=== PATIENT | female | born 1960 | race Caucasian/White ===

== ENCOUNTER → 2016-11-27 | Outpatient (CLI) | payer OTHER ==
[~2016-11-27] MED LIST: LEVO175T25 PO
--- NOTE | 2016-11-27 10:38 | DIAGNOSTIC IMAGING REPORT ---
RIGHT HAND MIN 3 VIEWS ROUTINE CLINICAL HISTORY: HAND PAIN Right trauma. Pain. COMPARISON: None. DISCUSSION: The bones and joint spaces appear intact. There is no evidence of fracture, dislocation or bony disease. There is no evidence for soft tissue swelling. IMPRESSION: Negative study. The above report was generated using voice recognition software. It may contain grammatical, syntax or spelling errors. Electronically signed by: Gutierrez William M.D. 11/27/2016 10:37 AM Dictated Date/Time: 11/27/2016 10:37 AM
--- NOTE | 2016-11-27 10:39 | DIAGNOSTIC IMAGING REPORT ---
RIGHT FOREARM 2 VIEWS ROUTINE CLINICAL HISTORY: ARM PAIN Right trauma. Pain. COMPARISON: None. DISCUSSION: The bones and joint spaces appear intact. There is no evidence of fracture, dislocation or bony disease. There is no evidence for soft tissue swelling. IMPRESSION: Negative study. The above report was generated using voice recognition software. It may contain grammatical, syntax or spelling errors. Electronically signed by: Gutierrez William M.D. 11/27/2016 10:38 AM Dictated Date/Time: 11/27/2016 10:37 AM
--- NOTE | 2016-11-27 10:40 | DIAGNOSTIC IMAGING REPORT ---
RIGHT WRIST MIN 3 VIEWS ROUTINE CLINICAL HISTORY: WRIST PAIN Right pain. Trauma. COMPARISON: None. DISCUSSION: The bones and joint spaces appear intact. There is no evidence of fracture, dislocation or bony disease. There is no evidence for soft tissue swelling. IMPRESSION: Negative study. The above report was generated using voice recognition software. It may contain grammatical, syntax or spelling errors. Electronically signed by: Gutierrez William M.D. 11/27/2016 10:39 AM Dictated Date/Time: 11/27/2016 10:38 AM
== END | disposition home or self-care (01) ==
LOC: C.RAD1850 10:09
PROVIDERS: ATTEND Physician Assistant Medical
DX: S49.91XA Unspecified injury of right shoulder and upper arm, initial encounter (principal); X58.XXXA Exposure to other specified factors, initial encounter

== ENCOUNTER 2021-11-01 14:13 | Inpatient (IN) ==
[2021-11-01] MEDS ORDERED: SODIUM CHLORIDE 0.9% 1000ML 2,000 ML IV ONE (14:25)
[2021-11-01] MEDS ORDERED: SODIUM CHLORIDE 0.9% 1000ML 500 ML IV ONE (14:33)
[2021-11-01] MEDS ORDERED: cefTRIAXone SODIUM 2,000 MG/70 ML BAG IV STA (14:33)
[2021-11-01] MEDS ORDERED: ACETAMINOPHEN 325 MG TAB PO STA (14:33)
--- NOTE | 2021-11-01 14:39 | Emergency Department Note ---
Impression & Plan Sepsis, Pyelonephritis ED Provider Note NAME: ROXY HAMMOND AGE: 61 SEX: F : 1960 ARRIVES VIA: Walk-In INFORMANT: Patient ED PROVIDER(S): Gabriel Kennedy DO CHIEF COMPLAINT: abdominal pain HPI: Patient is a 61-year-old female the ER for back pain associate with nausea, vomiting, and diarrhea. Pain located in the left lower back which started this past . Symptoms started this past . Patient has been having fevers 101. Patient has diffuse abdominal pain associated with this. She cannot keep anything down. History of previous appendectomy. Denies any vaginal bleeding or vaginal discharge. No other exacerbating or remitting factors. ROS: See above HPI for pertinent positives & negatives. A total of 10 systems reviewed and were otherwise negative. PAST MEDICAL HISTORY:See Below PAST SURGICAL HISTORY:See Below FAMILY HISTORY:See Below SOCIAL HISTORY:See Below HOME MEDICATIONS:See Below ALLERGIES:See Below VITALS:See Below PHYSICAL EXAMINATION: GENERAL: Sitting up in bed, alert, well appearing, well nourished, no distress, non-toxic EYE EXAM: normal conjunctiva. OROPHARYNX: no exudate, no erythema, lips, buccal mucosa, and tongue normal and mucous membranes are moist NECK: supple, no nuchal rigidity, no adenopathy, non-tender LUNGS: Clear to auscultation. Normal chest wall mechanics HEART: no murmurs, S1 normal and S2 normal ABDOMEN: abdomen soft, non-tender, normo-active bowel sounds, no masses, no rebound or guarding. BACK: Back is symmetrical on inspection and there is no deformity, no midline tenderness, no CVA tenderness. UPPER EXTREMITIES: upper extremities are grossly normal. LOWER EXTREMITIES: No pitting edema. NEURO EXAM: Normal sensorium, cranial nerves II-XII grossly intact, normal speec h, no gross weakness of arms, no gross weakness of legs. MEDICAL DECISION MAKING: Patient is a 61-year-old female who presents ER febrile and tachycardic. IV was established blood work is obtained. Labs show leukocytosis 17,000. No significant anemia. BMP along with LFTs, bilirubin, lipase, is unremarkable. UA suggest UTI. CT abdomen pelvis shows likely pyelonephritis which was reviewed by urology who believes that there is Pylo which is not mentioned on the CT read by radiologist. Pt was given 2.5 L of IV fluids. Patient was given 2 g of Rocephin. She was given IV pain medications updated bedside discussed with hospitalist admitted for further work-up of sepsis secondary to Pylo. Triage Nursing notes reviewed. Limited review of prior medical records performed Vital Signs: reviewed and remarkable for febrile and tachycardic Differential diagnosis: Differential diagnoses includes but is not limited to gastritis, peptic ulcer disease, GERD, gallbladder disease, pancreatitis, small bowel obstruction, acute coronary syndrome, pericarditis, ischemic bowel, irritable bowel disease, irritable bowel syndrome, appendicitis, diverticulitis, malignancy, hernia, urinary tract infection, torsion, [/ectopic (if female)], perforation, trauma, infectious. ER treatment provided: See below Diagnostics interpreted by me: ECG: none Cardiac Monitoring: An order was placed for continuous cardiac monitoring. The monitor shows a rate of 120 with sinus rhythm. Laboratory studies: As stated above and show below. 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 Hypothyroidism Insomnia Mood disorder Osteoporosis Tobacco use Surgical History (Updated 11/01/21 @ 17:01 by Madiha Lawrence PA-C) History of partial hysterectomy Hx of appendectomy Hx of tonsillectomy Family History (Updated 11/01/21 @ 17:02 by Madiha Lawrence PA-C) Father Cancer Heart disease Mother Uterine cancer Aunt Breast cancer Social History Smoking Status: Current every day smoker Preferred Language: Hebrew Feels Safe at Home: Yes Allergies Allergies Allergy/AdvReac Type Severity Reaction Status Date / Time penicillin G Allergy Unknown HIVES/ Unverified 11/01/21 17:29 SWELLING Home Meds Home Medications Medication Instructions Recorded Confirmed carisoprodol 350 mg tablet 350 mg PO TID PRN 11/01/21 11/01/21 hydrocodone 10 mg-acetaminophen 1 tab PO Q6 PRN 11/01/21 11/01/21 325 mg tablet ibuprofen 200 mg tablet (Advil) 400 mg PO Q6H PRN 11/01/21 11/01/21 levothyroxine 175 mcg tablet 175 mcg PO DAILY 11/01/21 11/01/21 ondansetron HCl 8 mg tablet 8 mg PO Q8 PRN 11/01/21 11/01/21 sumatriptan succinate 100 mg tablet 100 mg PO DIRECTED 11/01/21 11/01/21 zolmitriptan 5 mg tablet 5 mg PO DIRECTED 11/01/21 11/01/21 Results & Data (ED) Vital Signs Vital Signs - 24 hr 11/01/21 14:15 11/01/21 14:40 11/01/21 14:45 Temperature 39.0 C H Temperature Source Oral Pulse Rate 156 H 137 H 135 H Pulse Rate [Right Finger] Pulse Rate from SpO2 Sensor Pulse Rhythm Regular Pulse Rhythm [Right Finger] Pulse Strength Normal Pulse Strength [Right Finger] Respiratory Rate 20 23 22 Respiratory Effort / Characteristics Non-Labored Spontaneous Respiratory Depth Normal Respiratory Pattern Regular Blood Pressure 116/65 Blood Pressure [Left Arm] Blood Pressure Mean 82 Blood Pressure Mean [Left Arm] Blood Pressure Position Sitting Blood Pressure Position [Left Arm] Pulse Oximetry 96 Oxygen Delivery Method Room Air Sepsis Recent Fever Within 48 Hours Yes Sepsis New/Unexplained Change in Mental Status No Sepsis Action Taken by Nursing Physician Notified 11/01/21 15:00 11/01/21 15:05 11/01/21 15:07 Temperature 39 C H 37 C Temperature Source Oral Oral Pulse Rate 132 H 128 H Pulse Rate [Right Finger] 131 H 128 H Pulse Rate from SpO2 Sensor 131 H Pulse Rhythm Regular Pulse Rhythm [Right Finger] Regular Pulse Strength Pulse Strength [Right Finger] Normal Normal Respiratory Rate 23 18 19 Respiratory Effort / Characteristics Non-Labored Spontaneous Non-Labored Spontaneous Non-Labored Spontaneous Respiratory Depth Normal Normal Respiratory Pattern Tachypnea Regular Blood Pressure 122/81 Blood Pressure [Left Arm] 122/81 122/81 Blood Pressure Mean 94 Blood Pressure Mean [Left Arm] 94 94 Blood Pressure Position Blood Pressure Position [Left Arm] Lying Lying Pulse Oximetry 96 96 97 Oxygen Delivery Method Room Air Room Air Room Air Sepsis Recent Fever Within 48 Hours Sepsis New/Unexplained Change in Mental Status Sepsis Action Taken by Nursing 11/01/21 15:15 11/01/21 15:30 11/01/21 15:45 Temperature Temperature Source Pulse Rate 122 H 126 H 114 H Pulse Rate [Right Finger] Pulse Rate from SpO2 Sensor 130 H 126 H 114 H Pulse Rhythm Pulse Rhythm [Right Finger] Pulse Strength Pulse Strength [Right Finger] Respiratory Rate 19 20 20 Respiratory Effort / Characteristics Non-Labored Respiratory Depth Respiratory Pattern Blood Pressure Blood Pressure [Left Arm] Blood Pressure Mean Blood Pressure Mean [Left Arm] Blood Pressure Position Blood Pressure Position [Left Arm] Pulse Oximetry 92 100 97 Oxygen Delivery Method Room Air Sepsis Recent Fever Within 48 Hours Sepsis New/Unexplained Change in Mental Status Sepsis Action Taken by Nursing 11/01/21 16:00 11/01/21 16:09 11/01/21 16:12 Temperature Temperature Source Pulse Rate 110 H 107 H Pulse Rate [Right Finger] Pulse Rate from SpO2 Sensor 107 H Pulse Rhythm Pulse Rhythm [Right Finger] Regular Pulse Strength Pulse Strength [Right Finger] Respiratory Rate 19 28 H Respiratory Effort / Characteristics Non-Labored Respiratory Depth Normal Respiratory Pattern Blood Pressure 98/60 L Blood Pressure [Left Arm] Blood Pressure Mean 72 Blood Pressure Mean [Left Arm] Blood Pressure Position Blood Pressure Position [Left Arm] Pulse Oximetry 96 Oxygen Delivery Method Sepsis Recent Fever Within 48 Hours Sepsis New/Unexplained Change in Mental Status Sepsis Action Taken by Nursing 11/01/21 16:15 11/01/21 16:30 11/01/21 16:45 Temperature 38 C H Temperature Source Oral Pulse Rate 105 H 106 H 95 H Pulse Rate [Right Finger] 112 H Pulse Rate from SpO2 Sensor 106 H 106 H 95 H Pulse Rhythm Pulse Rhythm [Right Finger] Pulse Strength Pulse Strength [Right Finger] Respiratory Rate 19 25 H 25 H Respiratory Effort / Characteristics Respiratory Depth Respiratory Pattern Blood Pressure 95/60 L 103/57 L 117/57 L Blood Pressure [Left Arm] 98/60 L Blood Pressure Mean 71 72 77 Blood Pressure Mean [Left Arm] 72 Blood Pressure Position Blood Pressure Position [Left Arm] Pulse Oximetry 97 94 94 Oxygen Delivery Method Sepsis Recent Fever Within 48 Hours Sepsis New/Unexplained Change in Mental Status Sepsis Action Taken by Nursing Laboratory Data Result diagrams: 11/01/21 14:40 11/01/21 14:45 Lab Results 11/01/21 11/01/21 11/01/21 Range/Units 14:40 14:40 14:40 WBC 17.16 H (4.8-10.8) K/uL RBC 3.92 L (4.2-5.4) M/uL Hgb 12.8 (12.0-16.0) g/dL POC Hgb (12.0-16.0) g/dl Hct 38.2 (37-47) % POC Hct (37-47) % MCV 97.4 (80-100) fL MCH 32.7 (25-34) pg MCHC 33.5 (32-36) g/dL RDW Std Deviation 51.6 H (36.4-46.3) fL RDW Coeff of Etienne 14.5 (11.5-14.5) % Plt Count 255 (130-400) K/uL MPV 9.1 (7.4-10.4) fL Immature Gran % (Auto) 0.3 % Neut % (Auto) 87.5 % Lymph % (Auto) 5.8 % [place] % (Auto) 6.1 % Eos % (Auto) 0.2 % Baso % (Auto) 0.1 % Neut # (Auto) 15.01 H (1.4-6.5) K/uL Lymph # (Auto) 1.00 L (1.2-3.4) K/uL [place] # (Auto) 1.04 H (0.11-0.59) K/uL Eos # (Auto) 0.04 (0-0.5) K/uL Baso # (Auto) 0.02 (0-0.2) K/uL Immature Gran # (Auto) 0.05 H (0.00-0.02) K/uL PT 10.9 (9.0-12.0) Seconds INR 1.0 (0.9-1.1) APTT 25.1 (21.0-31.0) Seconds PTT Ratio 0.9 POC Sodium (135-144) mmol/L Sodium (136-145) mmol/L POC Potassium (3.3-5.0) mmol/L Potassium (3.5-5.1) mmol/L POC Chloride (101-112) mmol/L Chloride (98-107) mmol/L Carbon Dioxide (21-32) mmol/L POC Total CO2 (24-31) mmol/L Anion Gap (3-11) POC Anion Gap (16-25) mmol/L POC BUN (7-18) mg/dl BUN (6-23) mg/dl Creatinine (0.6-1.2) mg/dl POC Creatinine (0.6-1.3) mg/dl Est Cr Clr Drug Dosing ml/min Est GFR ( Amer) ml/min Est GFR (Non-Af Amer) ml/min BUN/Creatinine Ratio (10-20) Glucose (70-99(Fasting)) mg/dl POC Glucose (other) (70-99) mg/dl Lactate 1.2 (0.4-2.0) mmol/L Calcium (8.5-10.1) mg/dl POC Ioniz Calcium Philip (1.12-1.32) mmol/l Magnesium (1.7-2.4) mg/dl Total Bilirubin (0.2-1.0) mg/dl AST (13-39) U/L ALT (7-52) U/L Alkaline Phosphatase (34-104) U/L Troponin I High Sens (0-14) pg/ml Total Protein (6.0-8.3) gm/dl Albumin (3.4-5.0) gm/dl Globulin (2.5-4.0) gm/dl Albumin/Globulin Ratio (0.9-2) Procalcitonin (0-0.5) ng/ml TSH (0.300-4.500) uIu/ml Urine Color Urine Appearance (Clear) Urine pH (4.5-7.5) Ur Specific [place] (1.000-1.030) Urine Protein (Negative) Urine Glucose (UA) (Negative) Urine Ketones (Negative) Urine Blood (Negative) Urine Nitrite (Negative) Urine Bilirubin (Negative) Urine Urobilinogen (Negative) Ur Leukocyte Esterase (Negative) Urine WBC (Auto) (0-5) /hpf Urine RBC (Auto) (0-4) /hpf U Hyaline Cast (Auto) (0-5) /lpf U Epithel Cells (Auto) (0-5) /lpf Urine Bacteria (Auto) (Negative) Urine Yeast SARS-CoV-2, RNA, NAAT (NEGATIVE) 11/01/21 11/01/21 11/01/21 Range/Units 14:40 14:40 14:45 WBC (4.8-10.8) K/uL RBC (4.2-5.4) M/uL Hgb (12.0-16.0) g/dL POC Hgb (12.0-16.0) g/dl Hct (37-47) % POC Hct (37-47) % MCV (80-100) fL MCH (25-34) pg MCHC (32-36) g/dL RDW Std Deviation (36.4-46.3) fL RDW Coeff of Etienne (11.5-14.5) % Plt Count (130-400) K/uL MPV (7.4-10.4) fL Immature Gran % (Auto) % Neut % (Auto) % Lymph % (Auto) % [place] % (Auto) % Eos % (Auto) % Baso % (Auto) % Neut # (Auto) (1.4-6.5) K/uL Lymph # (Auto) (1.2-3.4) K/uL [place] # (Auto) (0.11-0.59) K/uL Eos # (Auto) (0-0.5) K/uL Baso # (Auto) (0-0.2) K/uL Immature Gran # (Auto) (0.00-0.02) K/uL PT (9.0-12.0) Seconds INR (0.9-1.1) APTT (21.0-31.0) Seconds PTT Ratio POC Sodium (135-144) mmol/L Sodium 134 L (136-145) mmol/L POC Potassium (3.3-5.0) mmol/L Potassium 3.7 (3.5-5.1) mmol/L POC Chloride (101-112) mmol/L Chloride 102 (98-107) mmol/L Carbon Dioxide 23 (21-32) mmol/L POC Total CO2 (24-31) mmol/L Anion Gap 9 (3-11) POC Anion Gap (16-25) mmol/L POC BUN (7-18) mg/dl BUN 24 H (6-23) mg/dl Creatinine 1.01 (0.6-1.2) mg/dl POC Creatinine (0.6-1.3) mg/dl Est Cr Clr Drug Dosing 56.5 ml/min Est GFR ( Amer) 69.6 ml/min Est GFR (Non-Af Amer) 60.0 ml/min BUN/Creatinine Ratio 23.8 H (10-20) Glucose 117 H (70-99(Fasting)) mg/dl POC Glucose (other) (70-99) mg/dl Lactate (0.4-2.0) mmol/L Calcium 9.4 (8.5-10.1) mg/dl POC Ioniz Calcium Philip (1.12-1.32) mmol/l Magnesium 1.7 (1.7-2.4) mg/dl Total Bilirubin 0.5 (0.2-1.0) mg/dl AST 19 (13-39) U/L ALT 19 (7-52) U/L Alkaline Phosphatase 65 (34-104) U/L Troponin I High Sens 15.1 H (0-14) pg/ml Total Protein 7.0 (6.0-8.3) gm/dl Albumin 3.9 (3.4-5.0) gm/dl Globulin 3.1 (2.5-4.0) gm/dl Albumin/Globulin Ratio 1.3 (0.9-2) Procalcitonin 1.81 H (0-0.5) ng/ml TSH 0.028 L (0.300-4.500) uIu/ml Urine Color Urine Appearance (Clear) Urine pH (4.5-7.5) Ur Specific [place] (1.000-1.030) Urine Protein (Negative) Urine Glucose (UA) (Negative) Urine Ketones (Negative) Urine Blood (Negative) Urine Nitrite (Negative) Urine Bilirubin (Negative) Urine Urobilinogen (Negative) Ur Leukocyte Esterase (Negative) Urine WBC (Auto) (0-5) /hpf Urine RBC (Auto) (0-4) /hpf U Hyaline Cast (Auto) (0-5) /lpf U Epithel Cells (Auto) (0-5) /lpf Urine Bacteria (Auto) (Negative) Urine Yeast SARS-CoV-2, RNA, NAAT (NEGATIVE) 11/01/21 11/01/21 11/01/21 Range/Units 14:45 14:54 16:12 WBC (4.8-10.8) K/uL RBC (4.2-5.4) M/uL Hgb (12.0-16.0) g/dL POC Hgb 13.6 (12.0-16.0) g/dl Hct (37-47) % POC Hct 40 (37-47) % MCV (80-100) fL MCH (25-34) pg MCHC (32-36) g/dL RDW Std Deviation (36.4-46.3) fL RDW Coeff of Etienne (11.5-14.5) % Plt Count (130-400) K/uL MPV (7.4-10.4) fL Immature Gran % (Auto) % Neut % (Auto) % Lymph % (Auto) % [place] % (Auto) % Eos % (Auto) % Baso % (Auto) % Neut # (Auto) (1.4-6.5) K/uL Lymph # (Auto) (1.2-3.4) K/uL [place] # (Auto) (0.11-0.59) K/uL Eos # (Auto) (0-0.5) K/uL Baso # (Auto) (0-0.2) K/uL Immature Gran # (Auto) (0.00-0.02) K/uL PT (9.0-12.0) Seconds INR (0.9-1.1) APTT (21.0-31.0) Seconds PTT Ratio POC Sodium 134 L (135-144) mmol/L Sodium (136-145) mmol/L POC Potassium 3.8 (3.3-5.0) mmol/L Potassium (3.5-5.1) mmol/L POC Chloride 101 (101-112) mmol/L Chloride (98-107) mmol/L Carbon Dioxide (21-32) mmol/L POC Total CO2 24 (24-31) mmol/L Anion Gap (3-11) POC Anion Gap 14.0 L (16-25) mmol/L POC BUN 25 H (7-18) mg/dl BUN (6-23) mg/dl Creatinine (0.6-1.2) mg/dl POC Creatinine 0.9 (0.6-1.3) mg/dl Est Cr Clr Drug Dosing ml/min Est GFR ( Amer) ml/min Est GFR (Non-Af Amer) ml/min BUN/Creatinine Ratio (10-20) Glucose (70-99(Fasting)) mg/dl POC Glucose (other) 121 H (70-99) mg/dl Lactate (0.4-2.0) mmol/L Calcium (8.5-10.1) mg/dl POC Ioniz Calcium Philip 1.16 (1.12-1.32) mmol/l Magnesium (1.7-2.4) mg/dl Total Bilirubin (0.2-1.0) mg/dl AST (13-39) U/L ALT (7-52) U/L Alkaline Phosphatase (34-104) U/L Troponin I High Sens (0-14) pg/ml Total Protein (6.0-8.3) gm/dl Albumin (3.4-5.0) gm/dl Globulin (2.5-4.0) gm/dl Albumin/Globulin Ratio (0.9-2) Procalcitonin (0-0.5) ng/ml TSH (0.300-4.500) uIu/ml Urine Color Yellow Urine Appearance Cloudy A (Clear) Urine pH 5.5 (4.5-7.5) Ur Specific [place] 1.016 (1.000-1.030) Urine Protein 2+ H (Negative) Urine Glucose (UA) Negative (Negative) Urine Ketones Negative (Negative) Urine Blood 3+ H (Negative) Urine Nitrite Positive A (Negative) Urine Bilirubin Negative (Negative) Urine Urobilinogen Negative (Negative) Ur Leukocyte Esterase 2+ H (Negative) Urine WBC (Auto) >30 H (0-5) /hpf Urine RBC (Auto) 5-10 H (0-4) /hpf U Hyaline Cast (Auto) 1-5 (0-5) /lpf U Epithel Cells (Auto) 20-30 H (0-5) /lpf Urine Bacteria (Auto) 4+ H (Negative) Urine Yeast Not Reportable SARS-CoV-2, RNA, NAAT NEGATIVE (NEGATIVE) Administered Medications Discontinued Medications Acetaminophen (Acetaminophen 325 Mg Tab) 650 mg PO NOW STA Stop: 11/01/21 14:34 Last Admin: 11/01/21 15:48 Dose: 650 mg Documented by: [id number] Sodium Chloride (Nss 1000ml) 2,000 mls @ 999 mls/hr IV .Q2H1M ONE Stop: 11/01/21 16:25 Last Admin: 11/01/21 15:10 Dose: 999 mls/hr Documented by: [id number] Sodium Chloride (Nss 1000ml) 2,000 mls @ 999 mls/hr IV .Q2H1M ONE Stop: 11/01/21 16:33 Last Admin: 11/01/21 16:48 Dose: Not Given Documented by: [id number] Sodium Chloride (Nss 1000ml) 500 mls @ 999 mls/hr IV .Q31M ONE Stop: 11/01/21 15:03 Last Infusion: 11/01/21 16:02 Dose: 0 mls/hr Documented by: [id number] Admin: 11/01/21 15:10 Dose: 999 mls/hr Documented by: [id number] Ceftriaxone Sodium (Rocephin) 2,000 mg in 70 mls @ 140 mls/hr IV NOW STA Stop: 11/01/21 15:02 Last Infusion: 11/01/21 16:02 Dose: 0 mls/hr Documented by: [id number] Admin: 11/01/21 15:48 Dose: 140 mls/hr Documented by: [id number] Ioversol (Optiray 320 100ml) 93 ml IV ONCE ONE Stop: 11/01/21 15:57 Last Admin: 11/01/21 15:59 Dose: 93 ml Documented by: [id number] Imaging Data Radiologist's Impression: Chest X-Ray 11/01/21 14:25 XR chest 1V portable CLINICAL HISTORY: SEPSIS. COMPARISON STUDY: No previous studies for comparison. TECHNIQUE: 1 view of the chest FINDINGS: Single frontal view of the chest demonstrates the cardiomediastinal silhouette to be within normal limits. The lungs are clear of alveolar opacities. There is no evidence for pleural effusion. There is no evidence for vascular congestion. There is no acute osseous pathology. IMPRESSION: 1. No acute cardiopulmonary disease. ACT 112: Negative or not required by law. Electronically signed by: Sherif Marquez M.D. 11/01/2021 3:52 PM Abdomen/Pelvis CT 11/01/21 14:33 CT abd pelvis IV con only CLINICAL HISTORY: abd pain n/v COMPARISON STUDY: No previous studies for comparison. CT DOSE: 252.06 mGy.cm TECHNIQUE: Standard CT of the Abdomen and Pelvis was performed with IV contrast. A dose lowering technique was utilized adhering to the principles of ALARA. Contrast Volume: Optiray 320, 93 ml. The patient did not receive oral contrast. FINDINGS: Lung base: The lung bases are clear. Abdominal cavity: There is no evidence for abdominal mass, adenopathy or ascites. Liver: There is homogeneous attenuation of the liver parenchyma. There is no evidence for enhancing mass lesion. Spleen: There is homogeneous attenuation of the splenic parenchyma. There is no enhancing mass lesion. Pancreas: There is homogeneous attenuation of the pancreatic parenchyma. There is no evidence for mass lesion or peripancreatic fluid collection. Gall Bladder: The gallbladder is well distended with no evidence for intraluminal calculi, wall thickening or pericholecystic edema. Adrenal glands: The adrenal glands are normal in size and attenuation. There is no evidence for enhancing mass lesion. Kidneys: There is mildly heterogeneous enhancement of the upper pole of the rig ht kidney posteriorly. No adjacent edematous changes are present. 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 There is no CT evidence for pyelonephritis. There is no evidence for renal calculus or hydronephrosis. There is no evidence for enhancing mass. Bowel: The bowel loops are normally placed within the abdomen and pelvis without evidence for dilatation or obstruction. There is no evidence for mass lesion. There are no inflammatory changes present. There is no evidence for free air. Bladder: The bladder is within normal limits with no evidence for focal mass, calculus or diverticulum. : There is no evidence for pelvic mass or adenopathy. There is no evidence for pelvic ascites. Vasculature: There is no evidence for aneurysmal dilatation of the abdominal aorta. Atherosclerotic calcification is present. Osseous structures: There is no acute osseous pathology. Degenerative changes are seen within the spine. IMPRESSION: 1. Heterogeneous enhancement involving the upper pole of the right kidney with findings suspicious for a small renal infarct. No CT evidence for pyelonephritis. 2. No other evidence for acute intra-abdominal or pelvic abnormality. 3. Additional nonacute findings as delineated above ACT 112: Negative or not required by law. Electronically signed by: Sherif Marquez M.D. 11/01/2021 4:14 PM Discharge Plan Visit Data Chief Complaint: Vomiting Stated Complaint: VOMITING, URINARY SYMPTOMS, SHAKING ED Provider: Gabriel Kennedy Discharge Problem: Sepsis, Pyelonephritis Discharge Problem: Sepsis Qualifiers: Sepsis type: sepsis due to unspecified organism Sepsis acute organ dysfunction status: unspecified Qualified Code(s): A41.9 - Sepsis, unspecified organism
[2021-11-01 15:04] LABS: Hematocrit (blood only) 38.2 % (37-47); Hemoglobin 12.8 g/dL (12.0-16.0); Mean Corpuscular Hemoglobin 32.7 pg (25-34); Mean Corpuscular Hgb Conc 33.5 g/dL (32-36); Mean Corpuscular Volume 97.4 fL (80-100); Mean Platelet Volume 9.1 fL (7.4-10.4); Platelet Count 255 K/uL (130-400); RDW Coefficient of Variation 14.5 % (11.5-14.5); RDW Standard Deviation 51.6 fL (36.4-46.3); Red Blood Count 3.92 M/uL (4.2-5.4); White Blood Count 17.16 K/uL (4.8-10.8)
[2021-11-01 15:06] LABS: iSTAT Creatinine 0.9 mg/dl (0.6-1.3); iSTAT Hemoglobin 13.6 g/dl (12.0-16.0); iSTAT Ionized Calcium 1.16 mmol/l (1.12-1.32); iSTAT Potassium 3.8 mmol/L (3.3-5.0)
[2021-11-01 15:22] LABS: Basophils # (auto) 0.02 K/uL (0-0.2); Basophils % (auto) 0.1 %; Eosinophils # (auto) 0.04 K/uL (0-0.5); Eosinophils % (auto) 0.2 %; Immature Granulocytes # (auto) 0.05 K/uL (0.00-0.02); Immature Granulocytes % (auto) 0.3 %; Lymphocytes % (auto) 5.8 %; Monocytes # (auto) 1.04 K/uL (0.11-0.59); Monocytes % (auto) 6.1 %; Neutrophils # (auto) 15.01 K/uL (1.4-6.5); Neutrophils % (auto) 87.5 %
[2021-11-01 15:36] LABS: Albumin Globulin Ratio 1.3 (0.9-2); Albumin Level 3.9 gm/dl (3.4-5.0); BUN Creatinine Ratio 23.8 (10-20); Bilirubin,Total 0.5 mg/dl (0.2-1.0); Calcium 9.4 mg/dl (8.5-10.1); Creatinine Clr Calc Pharmacy 56.5 ml/min; Est GFR (African American) 69.6 ml/min; Globulin 3.1 gm/dl (2.5-4.0); Magnesium 1.7 mg/dl (1.7-2.4); Potassium 3.7 mmol/L (3.5-5.1)
[2021-11-01 15:38] LABS: Appearance Urine Cloudy (Clear); Bacteria Urine Automated 4+ (Negative); Bilirubin Urine Negative (Negative); Blood Urine 3+ (Negative); Color Urine Yellow; Epithelial Cell Urine Auto 20-30 /lpf (0-5); Glucose Urine UA Negative (Negative); Ketones Urine Negative (Negative); Leukocyte Esterase Urine 2+ (Negative); Nitrite Urine Positive (Negative); Protein Urine 2+ (Negative); Specific Gravity Urine 1.016 (1.000-1.030); Troponin I High Sensitivity 15.1 pg/ml (0-14); Urobilinogen Urine Negative (Negative); WBC Urine Automated >30 /hpf (0-5); pH Urine 5.5 (4.5-7.5)
[2021-11-01 15:41] LABS: Partial Thromboplastin Ratio 0.9; Partial Thromboplastin Time 25.1 Seconds (21.0-31.0); Prothrombin Time 10.9 Seconds (9.0-12.0)
[2021-11-01] MEDS: SODIUM CHLORIDE 0.9% 1000ML 2,000 ML IV ONE ×2 (15:48→16:48)
--- NOTE | 2021-11-01 15:54 | XRay Report ---
XR chest 1V portable CLINICAL HISTORY: SEPSIS. COMPARISON STUDY: No previous studies for comparison. TECHNIQUE: 1 view of the chest FINDINGS: Single frontal view of the chest demonstrates the cardiomediastinal silhouette to be within normal li mits. The lungs are clear of alveolar opacities. There is no evidence for pleural effusion. There is no evidence for vascular congestion. There is no acute osseous pathology. IMPRESSION: 1. No acute cardiopulmonary disease. ACT 112: Negative or not required by law. Electronically signed by: Sherif Marquez M.D. 11/01/2021 3:52 PM
[2021-11-01] MEDS ORDERED: OPTIRAY 320 100ml IV ONE (15:56)
--- NOTE | 2021-11-01 16:17 | CT Scan Report ---
CT abd pelvis IV con only CLINICAL HISTORY: abd pain n/v COMPARISON STUDY: No previous studies for comparison. CT DOSE: 252.06 mGy.cm TECHNIQUE: Standard CT of the Abdomen and Pelvis was performed with IV contrast. A dose lowering dawn hnique was utilized adhering to the principles of ALARA. Contrast Volume: Optiray 320, 93 ml. The patient did not receive oral contrast. FINDINGS: Lung base: The lung bases are clear. Abdominal cavity: There is no evidence for abdominal mass, adenopathy or ascites. Liver: There is homogeneous attenuation of the liver parenchyma. There is no evidence for enhancing m ass lesion. Spleen: There is homogeneous attenuation of the splenic parenchyma. There is no enhancing mass lesion . Pancreas: There is homogeneous attenuation of the pancreatic parenchyma. There is no evidence for mas s lesion or peripancreatic fluid collection. Gall Bladder: The gallbladder is well distended with no evidence for intraluminal calculi, wall thick ening or pericholecystic edema. Adrenal glands: The adrenal glands are normal in size and attenuation. There is no evidence for enhan cing mass lesion. Kidneys: There is mildly heterogeneous enhancement of the upper pole of the right kidney posteriorly. No adjacent edematous changes are present. 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 There is no CT evidence for pyelonephritis. There is no evidence for renal calculus or hydronephrosis. Ther e is no evidence for enhancing mass. Bowel: The bowel loops are normally placed within the abdomen and pelvis without evidence for dilatat ion or obstruction. There is no evidence for mass lesion. There are no inflammatory changes present. There is no evidence for free air. Bladder: The bladder is within normal limits with no evidence for focal mass, calculus or diverticulu m. : There is no evidence for pelvic mass or adenopathy. There is no evidence for pelvic ascites. Vasculature: There is no evidence for aneurysmal dilatation of the abdominal aorta. Atherosclerotic c alcification is present. Osseous structures: There is no acute osseous pathology. Degenerative changes are seen within the spi ne. IMPRESSION: 1. Heterogeneous enhancement involving the upper pole of the right kidney with findings suspicious fo r a small renal infarct. No CT evidence for pyelonephritis. 2. No other evidence for acute intra-abdominal or pelvic abnormality. 3. Additional nonacute findings as delineated above ACT 112: Negative or not required by law. Electronically signed by: Sherif Marquez M.D. 11/01/2021 4:14 PM
--- NOTE | 2021-11-01 17:07 | History & Physical Report ---
Date of Service November 01, 2021 Assessment & Plan (1) UTI (urinary tract infection): (2) Sepsis: Plan: - Admit to tele - UA pending, urine culture pending - CT abd/pelvis reviewed showing heterogenous enhancement involving the upper pole the right kidney with findings suspicious for a small renal infarct, no pyelonephritis, no renal calculus or hydronephrosis. -Treated with IV ceftriaxone, switching to cefepime IV now - Consult nephrology for the renal infarct seen on CT -WBC 17.16, trend, afebrile -Was administered 2L of fluid in the ER, continue 2 additional liters NSS -EKG was reviewed and showed sinus tachycardia upon initial read, currently improved - Antiemetics ordered, give dose of ibuprofen since tylenol not breaking fever, monitor (3) Sinus tachycardia: Plan: - secondary to sepsis as above (4) Hypothyroidism: Plan: - Check TSH and T4, continue levothyroxine 175 mcg daily (5) Tobacco use: Plan: - Cessation encouraged, readdress if needs nicotine patch later as she is actively vomiting/rigors/septic as above. DVT ppx: - teds, scds, heparin subcu CODE: Full code Dispo: From home, likely to remain in the hospital x 1-2 days History of Present Illness Chief Complaint: vomiting Primary Care Provider: Segundo Lindsay MD This is a 61-year-old female with PMHx of hypothyroidism, insomnia, osteoporosis, tobacco use who presents to the ER with acute onset of vomiting. She reports that she started not feeling well on Tuesday, worsened on Tuesday and then this morning could barely do anything. She has significant rigors currently, and reports intermittent fever/chills. She jackeline been taking Tylenol and ibuprofen. She is having some lower abdominal cramping, dysuria with ur ination, denies hematuria. She has been unable to tolerate much p.o. intake due to not feeling well, this morning she took her home medications but then vomited them up. She is vomiting at bedside which is the first time she has done this since being in the ER. Patient is febrile with a temp of 38.7 despite being given Tylenol already. is present at bedside and supports the history. Allergies Allergy/AdvReac Type Severity Reaction Status Date / Time penicillin G Allergy Unknown HIVES/ Unverified 11/01/21 17:29 SWELLING Home Medications Medication Instructions Recorded Confirmed Type carisoprodol 350 mg tablet 350 mg PO TID PRN 11/01/21 11/01/21 History hydrocodone 10 mg-acetaminophen 1 tab PO Q6 PRN 11/01/21 11/01/21 History 325 mg tablet ibuprofen 200 mg tablet (Advil) 400 mg PO Q6H PRN 11/01/21 11/01/21 History levothyroxine 175 mcg tablet 175 mcg PO DAILY 11/01/21 11/01/21 History ondansetron HCl 8 mg tablet 8 mg PO Q8 PRN 11/01/21 11/01/21 History sumatriptan succinate 100 mg tablet 100 mg PO DIRECTED 11/01/21 11/01/21 History zolmitriptan 5 mg tablet 5 mg PO DIRECTED 11/01/21 11/01/21 History amlodipine 5 mg tablet (Norvasc) 5 mg PO QAM 30 Days #30 tab 11/06/21 Rx ciprofloxacin HCl 500 mg tablet 500 mg PO BID 5 Days #10 tab 11/06/21 Rx Past Med/Surg History Medical History Benign tumor of abdominal wall delivery delivered Hypothyroidism Insomnia Mood disorder Osteoporosis Tobacco use Surgical History History of partial hysterectomy Hx of appendectomy Hx of tonsillectomy Family History Father Cancer Heart disease Mother Uterine cancer Aunt Breast cancer Social History Smoking Status: Current every day smoker Cigarettes Per Day: 1/2 PPD; Second Hand Exposure: No; Hx Alcohol Use: No Hx Substance Use: No Preferred Language: Liberian Communication Ability: Effective Household Manager Required: No Beliefs That Will Affect Care: None Current Living Situation: Spouse Feels Safe at Home: Yes Assistive Devices: None Review of Systems Review of Systems: Constitutional: + fever, sweats and chills, Eyes: No diplopia, no worsening or blurred vision ENT: normal hearing, no trouble swallowing Respiratory: No cough, sputum, dyspnea at rest or on exertion Cardiovascular: No chest pain, tightness or palpitations Abdomen: + lower abdominal pain,+ nausea,+ vomiting, no diarrhea or constipation : dysuria, no hematuria Musculoskeletal: No joint pain, calf pain, swelling Neurologic: No weakness, numbness/tingling, or balance problems Psychiatric: No anxiety or depression Skin: No rash or itch Physical Exam Physical Exam: General: awake, alert, + severe rigors, + nauseous, + vomiting Head: Normocephalic, atraumatic ENT: PERRL, EOMI, no pharyngeal exudate, mucous membranes moist Chest: Clear to auscultation, on room air, no adventitious breath sounds Cardiac: sinus tachy, HR in 120s, no murmur, no JVD, normal peripheral pulses, good capillary refill Abdominal: NABS x 4 quadrants, soft, nondistended, nontender to palpation, no rebound or guarding Extremities: Normal inspection, no peripheral edema or erythema, calfs nontender to palpation Psych: Normal mood and affect Neuro: AAO x 3, strength intact bilaterally and rated 5/5, no motor deficits, speech is clear, no peripheral sensory deficits Results & Data Results & Data ([facility]) Vital Signs (Past 12 Hours) Vital Signs Temp Pulse Pulse Resp BP BP Pulse Ox 11/01/21 15:45 114 H 20 97 11/01/21 15:30 126 H 20 100 11/01/21 15:15 122 H 19 92 11/01/21 15:07 37 C 128 H 128 H 19 122/81 97 11/01/21 15:05 18 96 11/01/21 15:00 39 C H 132 H 131 H 23 122/81 122/81 96 11/01/21 14:45 135 H 22 11/01/21 14:40 137 H 23 11/01/21 14:15 39.0 C H 156 H 20 116/65 96 Laboratory Results 11/01/21 14:45 Urine Culture - Pending Urine,Clean Catch 11/01/21 14:55 Aerobic Blood Culture - Pending Blood Anaerobic Blood Culture - Pending 11/01/21 14:40 Aerobic Blood Culture - Pending Blood Anaerobic Blood Culture - Pending 11/01/21 11/01/21 11/01/21 16:12 14:54 14:45 WBC RBC Hgb POC Hgb 13.6 Hct POC Hct 40 MCV MCH MCHC RDW Std Deviation RDW Coeff of Etienne Plt Count MPV Immature Gran % (Auto) Neut % (Auto) Lymph % (Auto) [place] % (Auto) Eos % (Auto) Baso % (Auto) Neut # (Auto) Lymph # (Auto) [place] # (Auto) Eos # (Auto) Baso # (Auto) Immature Gran # (Auto) PT INR APTT PTT Ratio POC Sodium 134 L Sodium POC Potassium 3.8 Potassium POC Chloride 101 Chloride Carbon Dioxide POC Total CO2 24 Anion Gap POC Anion Gap 14.0 L POC BUN 25 H BUN Creatinine POC Creatinine 0.9 Est Cr Clr Drug Dosing Est GFR ( Amer) Est GFR (Non-Af Amer) BUN/Creatinine Ratio Glucose POC Glucose (other) 121 H Lactate Calcium POC Ioniz Calcium Philip 1.16 Magnesium Total Bilirubin AST ALT Alkaline Phosphatase Troponin I High Sens Total Protein Albumin Globulin Albumin/Globulin Ratio Procalcitonin Urine Color Yellow Urine Appearance Cloudy A Urine pH 5.5 Ur Specific [place] 1.016 Urine Protein 2+ H Urine Glucose (UA) Negative Urine Ketones Negative Urine Blood 3+ H Urine Nitrite Positive A Urine Bilirubin Negative Urine Urobilinogen Negative Ur Leukocyte Esterase 2+ H Urine WBC (Auto) >30 H Urine RBC (Auto) 5-10 H U Hyaline Cast (Auto) 1-5 U Epithel Cells (Auto) 20-30 H Urine Bacteria (Auto) 4+ H Urine Yeast Not Reportable SARS-CoV-2, RNA, NAAT NEGATIVE 11/01/21 11/01/21 11/01/21 14:45 14:40 14:40 WBC RBC Hgb POC Hgb Hct POC Hct MCV MCH MCHC RDW Std Deviation RDW Coeff of Etienne Plt Count MPV Immature Gran % (Auto) Neut % (Auto) Lymph % (Auto) [place] % (Auto) Eos % (Auto) Baso % (Auto) Neut # (Auto) Lymph # (Auto) [place] # (Auto) Eos # (Auto) Baso # (Auto) Immature Gran # (Auto) PT INR APTT PTT Ratio POC Sodium Sodium 134 L POC Potassium Potassium 3.7 POC Chloride Chloride 102 Carbon Dioxide 23 POC Total CO2 Anion Gap 9 POC Anion Gap POC BUN BUN 24 H Creatinine 1.01 POC Creatinine Est Cr Clr Drug Dosing 56.5 Est GFR ( Amer) 69.6 Est GFR (Non-Af Amer) 60.0 BUN/Creatinine Ratio 23.8 H Glucose 117 H POC Glucose (other) Lactate 1.2 Calcium 9.4 POC Ioniz Calcium Philip Magnesium 1.7 Total Bilirubin 0.5 AST 19 ALT 19 Alkaline Phosphatase 65 Troponin I High Sens 15.1 H Total Protein 7.0 Albumin 3.9 Globulin 3.1 Albumin/Globulin Ratio 1.3 Procalcitonin 1.81 H Urine Color Urine Appearance Urine pH Ur Specific [place] Urine Protein Urine Glucose (UA) Urine Ketones Urine Blood Urine Nitrite Urine Bilirubin Urine Urobilinogen Ur Leukocyte Esterase Urine WBC (Auto) Urine RBC (Auto) U Hyaline Cast (Auto) U Epithel Cells (Auto) Urine Bacteria (Auto) Urine Yeast SARS-CoV-2, RNA, NAAT 11/01/21 11/01/21 14:40 14:40 WBC 17.16 H RBC 3.92 L Hgb 12.8 POC Hgb Hct 38.2 POC Hct MCV 97.4 MCH 32.7 MCHC 33.5 RDW Std Deviation 51.6 H RDW Coeff of Etienne 14.5 Plt Count 255 MPV 9.1 Immature Gran % (Auto) 0.3 Neut % (Auto) 87.5 Lymph % (Auto) 5.8 [place] % (Auto) 6.1 Eos % (Auto) 0.2 Baso % (Auto) 0.1 Neut # (Auto) 15.01 H Lymph # (Auto) 1.00 L [place] # (Auto) 1.04 H Eos # (Auto) 0.04 Baso # (Auto) 0.02 Immature Gran # (Auto) 0.05 H PT 10.9 INR 1.0 APTT 25.1 PTT Ratio 0.9 POC Sodium Sodium POC Potassium Potassium POC Chloride Chloride Carbon Dioxide POC Total CO2 Anion Gap POC Anion Gap POC BUN BUN Creatinine POC Creatinine Est Cr Clr Drug Dosing Est GFR ( Amer) Est GFR (Non-Af Amer) BUN/Creatinine Ratio Glucose POC Glucose (other) Lactate Calcium POC Ioniz Calcium Philip Magnesium Total Bilirubin AST ALT Alkaline Phosphatase Troponin I High Sens Total Protein Albumin Globulin Albumin/Globulin Ratio Procalcitonin Urine Color Urine Appearance Urine pH Ur Specific [place] Urine Protein Urine Glucose (UA) Urine Ketones Urine Blood Urine Nitrite Urine Bilirubin Urine Urobilinogen Ur Leukocyte Esterase Urine WBC (Auto) Urine RBC (Auto) U Hyaline Cast (Auto) U Epithel Cells (Auto) Urine Bacteria (Auto) Urine Yeast SARS-CoV-2, RNA, NAAT Diagnostic Findings Chest X-Ray 11/01/21 14:25 XR chest 1V portable CLINICAL HISTORY: SEPSIS. COMPARISON STUDY: No previous studies for comparison. TECHNIQUE: 1 view of the chest FINDINGS: Single frontal view of the chest demonstrates the cardiomediastinal silhouette to be within normal limits. The lungs are clear of alveolar opacities. There is no evidence for pleural effusion. There is no evidence for vascular congestion. There is no acute osseous pathology. IMPRESSION: 1. No acute cardiopulmonary disease. ACT 112: Negative or not required by law. Electronically signed by: Sherif Marquez M.D. 11/01/2021 3:52 PM Abdomen/Pelvis CT 11/01/21 14:33 CT abd pelvis IV con only CLINICAL HISTORY: abd pain n/v COMPARISON STUDY: No previous studies for comparison. CT DOSE: 252.06 mGy.cm TECHNIQUE: Standard CT of the Abdomen and Pelvis was performed with IV contrast. A dose lowering technique was utilized adhering to the principles of ALARA. Contrast Volume: Optiray 320, 93 ml. The patient did not receive oral contrast. FINDINGS: Lung base: The lung bases are clear. Abdominal cavity: There is no evidence for abdominal mass, adenopathy or ascites. Liver: There is homogeneous attenuation of the liver parenchyma. There is no evidence for enhancing mass lesion. Spleen: There is homogeneous attenuation of the splenic parenchyma. There is no enhancing mass lesion. Pancreas: There is homogeneous attenuation of the pancreatic parenchyma. There is no evidence for mass lesion or peripancreatic fluid collection. Gall Bladder: The gallbladder is well distended with no evidence for intraluminal calculi, wall thickening or pericholecystic edema. Adrenal glands: The adrenal glands are normal in size and attenuation. There is no evidence for enhancing mass lesion. Kidneys: There is mildly heterogeneous enhancement of the upper pole of the right kidney posteriorly. No adjacent edematous changes are present. 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 There is no CT evidence for pyelonephritis. There is no evidence for renal calculus or hydronephrosis. There is no evidence for enhancing mass. Bowel: The bowel loops are normally placed within the abdomen and pelvis without evidence for dilatation or obstruction. There is no evidence for mass lesion. There are no inflammatory changes present. There is no evidence for free air. Bladder: The bladder is within normal limits with no evidence for focal mass, calculus or diverticulum. : There is no evidence for pelvic mass or adenopathy. There is no evidence for pelvic ascites. Vasculature: There is no evidence for aneurysmal dilatation of the abdominal aorta. Atherosclerotic calcification is present. Osseous structures: There is no acute osseous pathology. Degenerative changes are seen within the spine. IMPRESSION: 1. Heterogeneous enhancement involving the upper pole of the right kidney with findings suspicious for a small renal infarct. No CT evidence for pyelonephritis. 2. No other evidence for acute intra-abdominal or pelvic abnormality. 3. Additional nonacute findings as delineated above ACT 112: Negative or not required by law. Electronically signed by: Sherif Marquez M.D. 11/01/2021 4:14 PM Code Status & VTE Plan Code Status Full code VTE Prophylaxis Plan VTE Prophylaxis will be ordered: Yes Supervising Physician Co-Signing Physician Notes Pt was seen and examined. Agreed with Madiha exam, assessment and plan. 61-year-old female with PMHx of hypothyroidism, insomnia, osteoporosis, tobacco use who presents to the ER with acute onset of vomiting. She said that she has not been feeling well for the last few days. She said today her symptoms worsening. She is having some lower abdominal cramping, dysuria with urination, denies hematuria. CT abd/pelvis on admission showed Heterogeneous enhancement involving the upper pole of the right kidney with findings suspicious for a small renal infarct. No CT evidence for pyelonephritis. No other evidence for acute intra-abdominal or pelvic abnormality. WBC elevated on admission. Received IV Rocephin in the ER, will transition to cefepime. Blood cx and urine cx collected in the ER pending. Continue IV abx with Cefepime. Continue pain control. Continue monitor closely. MD Shayne
[2021-11-01] MEDS ORDERED: ONDANSETRON INJ 2 MG/ML 2 ML VIAL IV PRN (17:48)
[2021-11-01] MEDS ORDERED: ONDANSETRON INJ 2 MG/ML 2 ML VIAL ONE (18:12)
[2021-11-01] MEDS ORDERED: IBUPROFEN 200 MG TAB PO ONE (18:57)
[2021-11-01] MEDS ORDERED: CARISOPRODOL 350 MG TABLET PO PRN (19:06)
[2021-11-01] MEDS ORDERED: IBUPROFEN 200 MG TAB PO STA (19:06)
[2021-11-01] MEDS ORDERED: IBUPROFEN 200 MG TAB PO PRN (19:06)
[2021-11-01 19:11] LABS: Thyroid Stimulating Hormone 0.028 uIu/ml (0.300-4.500)
[2021-11-01 19:48] LABS: T4 Free Thyroxine 1.66 ng/dl (0.61-1.60)
[2021-11-01] MEDS: SODIUM CHLORIDE 0.9% 1000ML 1,000 ML IV SCH (20:07)
[2021-11-01] MEDS: HYDROcodone/ACETAMINOPHEN 10/325 TAB PO PRN (20:08)
[2021-11-01] MEDS: HEPARIN SOD 5,000 UNIT/0.5 ML VIAL SQ SCH (20:09)
[2021-11-01] MEDS: CEFEPIME 1,000 MG in SYRINGE 0 ML IV SCH (20:09)
[2021-11-01] MEDS: ACETAMINOPHEN 325 MG TAB PO PRN (22:14)
[2021-11-01] MEDS ORDERED: SODIUM CHLORIDE 0.9% 500 ML IV SCH (22:45)
[2021-11-02] MEDS ORDERED: Nursing to Pharmacy Communication SCH (01:15)
[2021-11-02 02:56] LABS: A calco-baum cmplx NotReported Not Detected (NotDetected); Bact fragilis Not Reported Not Detected (NotDetected); C auris Not Reported Not Detected (NotDetected); CTX-M Resistant Gene Not Detected (NotDetected); Calbicans Not Reported Not Detected (NotDetected); Candida glabrata Not Reported Not Detected (NotDetected); Candida krusei Not Reported Not Detected (NotDetected); Cneoformans/gatti Not Reported Not Detected (NotDetected); Cparapsilosis Not Reported Not Detected (NotDetected); Ctropicalis Not Reported Not Detected (NotDetected); E cloacae compx Not Reported Not Detected (NotDetected); Efaecalis Not Reported Not Detected (NotDetected); Efaecium Not Reported Not Detected (NotDetected); Enterobacterales DETECTED (NotDetected); Enterobacterales Not Reported DETECTED (NotDetected); Escherichia coli Not Reported DETECTED (NotDetected); H influenzae Not Reported Not Detected (NotDetected); IMP Resistant Gene Not Detected (NotDetected); K aerogenes Not Reported Not Detected (NotDetected); KPC Resistant Gene Not Detected (NotDetected); Koxytoca Not Reported Not Detected (NotDetected); Kpneumoniae grp Not Reported Not Detected (NotDetected); Lmonocyt Not Reported Not Detected (NotDetected); N meningitidis Not Reported Not Detected (NotDetected); NDM Resistant Gene Not Detected (NotDetected); OXA 48 Like Resistant Gene Not Detected (NotDetected); P aeruginosa Not Reported Not Detected (NotDetected); Proteus spp Not Reported Not Detected (NotDetected); Salmonella spp Not Reported Not Detected (NotDetected); Smarcescens Not Reported Not Detected (NotDetected); Staph lugdunensis Not Reported Not Detected (NotDetected); Staph spp. Not Reported Not Detected (NotDetected); Staphaureus Not Reported Not Detected (NotDetected); Staphepi Not Reported Not Detected (NotDetected); Stenmaltophilia Not Reported Not Detected (NotDetected); Strep agal(GrpB) Not Reported Not Detected (NotDetected); Strep pneum Not Reported Not Detected (NotDetected); Strep pyog (GrpA) Not Reported Not Detected (NotDetected); Strep spp Not Reported Not Detected (NotDetected); VIM Resistant Gene Not Detected (NotDetected); mcr-1 Colistin Resistant Gene Not Detected (NotDetected)
[2021-11-02] MEDS: CEFEPIME 1,000 MG in SYRINGE 0 ML IV SCH (03:47)
[2021-11-02] MEDS: LEVOTHYROXINE SODIUM 175 MCG TABLET PO SCH (05:31)
[2021-11-02] MEDS: SODIUM CHLORIDE 0.9% 1000ML 1,000 ML IV SCH (05:32)
[2021-11-02 07:05] LABS: Hematocrit (blood only) 31.7 % (37-47); Hemoglobin 10.1 g/dL (12.0-16.0); Mean Corpuscular Hemoglobin 31.3 pg (25-34); Mean Corpuscular Hgb Conc 31.9 g/dL (32-36); Mean Corpuscular Volume 98.1 fL (80-100); Mean Platelet Volume 9.3 fL (7.4-10.4); Platelet Count 200 K/uL (130-400); RDW Standard Deviation 53.9 fL (36.4-46.3); Red Blood Count 3.23 M/uL (4.2-5.4); White Blood Count 16.41 K/uL (4.8-10.8)
[2021-11-02 07:46] LABS: Albumin Globulin Ratio 1.2 (0.9-2); Albumin Level 2.9 gm/dl (3.4-5.0); BUN Creatinine Ratio 23.2 (10-20); Bilirubin,Total 0.3 mg/dl (0.2-1.0); Calcium 7.9 mg/dl (8.5-10.1); Creatinine Clr Calc Pharmacy 72.7 ml/min; Est GFR (African American) 89.5 ml/min; Est GFR (Non-African American) 77.2 ml/min; Globulin 2.5 gm/dl (2.5-4.0); Potassium 4.5 mmol/L (3.5-5.1); Total Protein 5.4 gm/dl (6.0-8.3)
[2021-11-02] MEDS: HEPARIN SOD 5,000 UNIT/0.5 ML VIAL SQ SCH ×2 (07:52→20:05)
[2021-11-02] MEDS: cefTRIAXone SODIUM 2,000 MG in DEXTROSE 5% 50 ML IV SCH (13:12)
--- NOTE | 2021-11-02 13:35 | Electrocardiogram Report ---
Test Reason : Blood Pressure : / mmHG Vent. Rate : 131 BPM Atrial Rate : 131 BPM P-R Int : 158 ms QRS Dur : 086 ms QT Int : 286 ms P-R-T Axes : 065 055 053 degrees QTc Int : 422 ms Poor data quality, interpretation may be adversely affected Sinus tachycardia Biatrial enlargement Poor R wave progression, consider anterior CO vs. lead placement vs. LVH Abnormal ECG When compared with ECG of 24-NOV-1995 19:13, Vent. rate has increased BY 45 BPM Confirmed by Richard Thompson ([id number]) on 11/02/2021 1:34:49 PM Referred By: REFERRED SELF Confirmed By:Richard Thompson
--- NOTE | 2021-11-02 14:30 | Nephrology Consultation ---
Date of Consultation November 02, 2021 Assessment & Plan (1) Abnormal radiologic findings on diagnostic imaging of renal pelvis, ureter, or bladder: in the settign of new findings on R kidney with signficant bacteremia >> needs an echo since infarcts while rare can be caused by VTE for example from heart; covid can also in some ways be considered a vascular disease and could have a role here. likeliest explanation though is that all of this predates bacteremia and aligns with imaging from 09/[address] 2001 >TTE to start >need to consider best f/u imaging >> could be scar from childhood pyelo (likeliest) or could be other (complex cystic lesion) >> likely to need renal MRI or other as OP (2) Pyelonephritis: -TTE as above -repeat blood cultures/ abtx per primary -aggressive IVF to support BP is recommended >> it's still low History of Present Illness Reason for Consultation: Renal Infarct Requesting Physician: Dr Bella Attending Physician: Marleen Bella MD History of Present Illness 61 y/o F whom I'm asked to see for renal infarct was admitted yesterday evening for sepsis of urinary origin and found on work up to have 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 PMH includes active tobacco abuse, hypothryoid, osteoporosis, chronic back pain, chronic LEFT flank pain x years; migraines; chronic LUTS and intermittent UTI. Hospitalized as teen and during no other times for pyelonephritis. no hx of clotting disorder, hyperlipidemia, invaseive heart procedures or arrhythmia; no hx of preeclampsia. Also had covid earlier this month. She had 2 days of vomiting and no po intake prior to presentation w/ significant generalized weakness adn F to 38.7 in ER despite tylenol. Had been on tylenol and ibuprofen prior to admission though hardly kept any of it down. eating better now bust struggles still w/ energy/ fatigue; no emesis since last evening but intermittent N; mild abd distension. ongoing L flank pain radiating to abdomen and now some on R as well; no edema, no rash, no further F. no gross hematuria; ongoing dysuria. Her chemistries/renal function have all been wnl; her SBP has ranged 80s-120s since arrival; for past 18 hrs more in 80s-90s range; she is on RA. No IVF currently running; had IV contrast yesterday afternoon to evaluate abdomen. She is currently 4.1L positive and has made 500 mL+ 2 voids of urine. No hx of stone dz for sure; long hx of L flank pain and has mutliple outside imaging studies (in [facility]) and remote negative cystoscopy. was starting another round of w/u for L flank pain in mid september before she had covid and told at that time had "spot" on u/s L kidney. No FH of CKD or VTE. Her is at bedside and gives some hx. Allergies Allergy/AdvReac Type Severity Reaction Status Date / Time penicillin G Allergy Unknown HIVES/ Unverified 11/01/21 17:29 SWELLING Home Medications Medication Instructions Recorded Confirmed Type carisoprodol 350 mg tablet 350 mg PO TID PRN 11/01/21 11/01/21 History hydrocodone 10 mg-acetaminophen 1 tab PO Q6 PRN 11/01/21 11/01/21 History 325 mg tablet ibuprofen 200 mg tablet (Advil) 400 mg PO Q6H PRN 11/01/21 11/01/21 History levothyroxine 175 mcg tablet 175 mcg PO DAILY 11/01/21 11/01/21 History ondansetron HCl 8 mg tablet 8 mg PO Q8 PRN 11/01/21 11/01/21 History sumatriptan succinate 100 mg tablet 100 mg PO DIRECTED 11/01/21 11/01/21 History zolmitriptan 5 mg tablet 5 mg PO DIRECTED 11/01/21 11/01/21 History Patient History Medical History Benign tumor of abdominal wall delivery delivered Hypothyroidism Insomnia Mood disorder Osteoporosis Tobacco use Surgical History History of partial hysterectomy Hx of appendectomy Hx of tonsillectomy Family History Father Cancer Heart disease Mother Uterine cancer Aunt Breast cancer Social History Smoking Status: Current every day smoker Cigarettes Per Day: 1/2 PPD; Second Hand Exposure: No; Tobacco Cessation Education Requested by Patient: No Hx Alcohol Use: No Hx Substance Use: No Preferred Language: Czech Communication Ability: Effective Annual Campaign Manager Required: No Beliefs That Will Affect Care: None Current Living Situation: Spouse Other Information That Helps Us Care for You: No Feels Safe at Home: Yes Safety Concerns: Feels Safe At This Time Assistive Devices: None Assistive Devices Comment: Pt. has upper partial Review of Systems Review of Systems: All systems reviewed & are unremarkable except as noted in HPI & below Physical Exam Constitutional: well developed, well nourished, + ill appearing (intermittently/ plays out) and cooperative; no acute distress Eyes: EOM intact bilaterally ENMT: Ears: no external ear abnormality Nose: no external nose abnormality Mouth: + dry oral mucous membranes Neck: no nuchal rigidity Respiratory: normal respiratory effort Auscultation: + diminished lung sounds Cardiovascular: RRR, no murmur, no edema Gastrointestinal (Abdomen): Inspection/Auscultation: normal bowel sounds and + abdominal surgical scar; caput medusae absent Percussion/Palpation: + abdomen tender (distendend; tender daryl L quadrants), + guarding (slight) and abdomen soft Musculoskeletal: Extremities: strength 5/5 throughout (but tires) Skin: no rashes, warm and dry Neurologic: cage, fluent speech, no tremor Psychiatric: Insight: good insight Judgement: good judgement oriented x 3 Results & Data ([facility]) Vital Signs (Past 12 Hours) Vital Signs Temp Pulse Resp BP Pulse Ox 11/02/21 11:00 36.8 C 75 20 99/64 L 97 11/02/21 07:51 36.6 C 82 18 99/64 L 94 11/02/21 03:00 36.7 C 82 16 84/53 L 94 Laboratory Results 11/02/21 06:42 11/02/21 06:42 3/4 blood cutlures and urine cx all + GNR Diagnostic Findings CT a/p w/ IV only Lung base: The lung bases are clear. Abdominal cavity: There is no evidence for abdominal mass, adenopathy or ascites. Liver: There is homogeneous attenuation of the liver parenchyma. There is no evidence for enhancing mass lesion. Spleen: There is homogeneous attenuation of the splenic parenchyma. There is no enhancing mass lesion. Pancreas: There is homogeneous attenuation of the pancreatic parenchyma. There is no evidence for mass lesion or peripancreatic fluid collection. Gall Bladder: The gallbladder is well distended with no evidence for intraluminal calculi, wall thickening or pericholecystic edema. Adrenal glands: The adrenal glands are normal in size and attenuation. There is no evidence for enhancing mass lesion. Kidneys: There is mildly heterogeneous enhancement of the upper pole of the right kidney posteriorly. No adjacent edematous changes are present. 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 There is no CT evidence for pyelonephritis. There is no evidence for renal calculus or hydronephrosis. There is no evidence for enhancing mass. Bowel: The bowel loops are normally placed within the abdomen and pelvis without evidence for dilatation or obstruction. There is no evidence for mass lesion. There are no inflammatory changes present. There is no evidence for free air. Bladder: The bladder is within normal limits with no evidence for focal mass, calculus or diverticulum. : There is no evidence for pelvic mass or adenopathy. There is no evidence for pelvic ascites. Vasculature: There is no evidence for aneurysmal dilatation of the abdominal aorta. Atherosclerotic calcification is present. Osseous structures: There is no acute osseous pathology. Degenerative changes are seen within the spine. IMPRESSION: 1. Heterogeneous enhancement involving the upper pole of the right kidney with findings suspicious for a small renal infarct. No CT evidence for pyelonephritis. 2. No other evidence for acute intra-abdominal or pelvic abnormality. 3. Additional nonacute findings as delineated above CXR Single frontal view of the chest demonstrates the cardiomediastinal silhouette to be within normal limits. The lungs are clear of alveolar opacities. There is no evidence for pleural effusion. There is no evidence for vascular congestion. There is no acute osseous pathology. IMPRESSION: 1. No acute cardiopulmonary disease. OUTSIDE STUDIES 09/2021 renal u/s [facility] -1.2 CM R upper pole complex cystic lesion -L mid pole possible stone CT 2001 (sic) non [facility] bu tscanned R upper pole parenchymal scar in kidney
[2021-11-02] MEDS: KETOROLAC TROMETHAMINE 15 MG/ML VIAL IV PRN (19:16)
[2021-11-02] MEDS: MELATONIN 3 MG TAB PO PRN (22:43)
[2021-11-02] MEDS: ACETAMINOPHEN 325 MG TAB PO PRN (22:43)
--- NOTE | 2021-11-02 22:47 | Hospitalist Progress Note ---
Date of Service November 02, 2021 Assessment & Plan (1) UTI (urinary tract infection): (2) Sepsis: Plan: Pyelonephritis Met SIRS criteria on admission with elevated WBC, elevated heart rate, febrile Present on admission with abdominal pain associated with nausea, vomiting, chills CT abd/pelvis reviewed showing heterogenous enhancement involving the upper pole the right kidney with findings suspicious for a small renal infarct, no pyelonephritis, no renal calculus or hydronephrosis. urine cx grew gram negative bacilli Received IV ceftriaxone on admission then switching to cefepime IV Abx changed to Rocephin WBC slightly decreased to 16 K and elevated procalcitonin Blood culture positive for gram-negative bacilli continue pain management with Toradol and [place] Continue monitor closely Bacteremia Blood cx positive for gram negative bacilli Continue IV antibiotic with Rocephin We will get an echo Repeat blood culture Abnormal radiologic findings on diagnostic imaging of renal pelvis, CT abd/pelvis showed heterogeneous enhancement involving the upper pole of the right kidney with findings suspicious for a small renal infarct. Nephrology on board Will need renal MRI once clinically improves possible outpatient (3) Sinus tachycardia: Plan: Secondary to sepsis Heart rate improved (4) Hypothyroidism: Plan: TSH 0.028 and T4 1.66 Will decrease levothyroxine to 150 mcg daily (5) Tobacco use: Plan: Counseling on smoking cessation DVT ppx: teds, scds, heparin subcu CODE: Full code Admission and Anticipated Discharge Date Admission Date: November 01, 2021 Subjective Patient was seen and examined for follow-up of left flank pain Lying in bed with no acute distress Pt said that she feels much better compared to yestersday Currently she is having headache and pain in both flank area L>R Denies any chest pain, palpitation, dizziness, shortness of breath. Review of Systems Review of Systems: All systems reviewed & are unremarkable except as noted in Subjective Physical Exam Physical Exam: General- No acute distress Head- atraumatic Eyes- PERRL, EOMI, ENT- oropharynx clear Neck- supple, no JVD Lungs- clear to auscultation Heart- regular rhythm; no murmur Abdomen- normal bowel sounds, soft, nontender Extremities- no calf tenderness Neuro- alert, oriented x 3; PERRL, EOMI; no facial palsy; no dysarthria Skin- warm & dry Results & Data Results & Data ([facility]) Vital Signs (Past 12 Hours) Vital Signs Temp Pulse Pulse Resp BP Pulse Ox 11/02/21 18:15 37.3 C 98 H 20 124/73 96 11/02/21 16:00 72 11/02/21 14:55 36.9 C 79 20 90/60 L 97 11/02/21 11:00 36.8 C 75 20 99/64 L 97
[2021-11-03] MEDS: KETOROLAC TROMETHAMINE 15 MG/ML VIAL IV PRN ×2 (04:37→19:44)
[2021-11-03] MEDS: ACETAMINOPHEN 325 MG TAB PO PRN (04:38)
[2021-11-03] MEDS: LEVOTHYROXINE SODIUM 175 MCG TABLET PO SCH (05:17)
[2021-11-03 07:41] LABS: Hematocrit (blood only) 30.1 % (37-47); Hemoglobin 9.8 g/dL (12.0-16.0); Mean Corpuscular Hemoglobin 31.3 pg (25-34); Mean Corpuscular Hgb Conc 32.6 g/dL (32-36); Mean Corpuscular Volume 96.2 fL (80-100); Mean Platelet Volume 9.5 fL (7.4-10.4); Platelet Count 200 K/uL (130-400); RDW Coefficient of Variation 14.9 % (11.5-14.5); RDW Standard Deviation 52.5 fL (36.4-46.3); Red Blood Count 3.13 M/uL (4.2-5.4); White Blood Count 8.87 K/uL (4.8-10.8)
[2021-11-03 08:03] LABS: Albumin Globulin Ratio 1.2 (0.9-2); BUN Creatinine Ratio 23.4 (10-20); Bilirubin,Total 0.3 mg/dl (0.2-1.0); Calcium 8.5 mg/dl (8.5-10.1); Creatinine Clr Calc Pharmacy 77.4 ml/min; Est GFR (African American) 96.6 ml/min; Est GFR (Non-African American) 83.3 ml/min; Globulin 2.6 gm/dl (2.5-4.0); Potassium 3.7 mmol/L (3.5-5.1); Total Protein 5.6 gm/dl (6.0-8.3)
[2021-11-03] MEDS: HEPARIN SOD 5,000 UNIT/0.5 ML VIAL SQ SCH ×2 (08:31→21:33)
[2021-11-03] MEDS: HYDROcodone/ACETAMINOPHEN 10/325 TAB PO PRN ×2 (11:21→23:33)
[2021-11-03] MEDS: cefTRIAXone SODIUM 2,000 MG in DEXTROSE 5% 50 ML IV SCH (11:25)
[2021-11-03] MEDS: SODIUM CHLORIDE 0.9% 1000ML 1,000 ML IV SCH (12:21)
--- NOTE | 2021-11-03 17:46 | Nephrology Progress Note ---
Date of Service November 03, 2021 Assessment & Plan (1) Abnormal radiologic findings on diagnostic imaging of renal pelvis, ureter, or bladder: Plan: this patient has had scarring in her R upper renal pole since at least 2001 CT imaging; September 2021 renal u/s showed 1.2 CM complex cystic R upper pole lesion; admission CT showed R upper renal pole findings concerning for small infarct. TTE w/o vegetation; no hx of clotting these R upper pole findings are likeliest d/t scarring from prior pyelonephritis episodes as girl and as young woman recommend OP f/u w/ [facility] urology 1-2 wks after hospital d/c to evaluate multiple imagingstudies (u/s, CT's x 2) >> likely to need renal MRI or other as OP WILL SIGN OFF; pls call if ? (2) Pyelonephritis: Plan: TTE reassuring; however not yet 24 hr w/o F -repeat blood cultures/ abtx per primary -BP improved w/ NS at 80 mL hourly >> changed it back to 50 mL hourly for now -law bmp while in house Admission and Anticipated Discharge Date Admission Date: November 01, 2021 Subjective N and F overnight; feeling a bit better now. ongoing L flank pain. + MELENDEZ Review of Systems Review of Systems: All systems reviewed & are unremarkable except as noted in Subjective Physical Exam Constitutional: well developed, well nourished, + ill appearing (less so today) and cooperative; no acute distress Eyes: EOM intact bilaterally ENMT: Ears: no external ear abnormality Nose: no external nose abnormality Mouth: + dry oral mucous membranes Neck: no nuchal rigidity Respiratory: normal respiratory effort Auscultation: + diminished lung sounds Cardiovascular: RRR, no murmur, no edema Gastrointestinal (Abdomen): Inspection/Auscultation: normal bowel sounds and + abdominal surgical scar; caput medusae absent Percussion/Palpation: abdomen soft; abdomen nontender and no guarding Musculoskeletal: Extremities: strength 5/5 throughout (but tires) Skin: no rashes, warm and dry Neurologic: cage, fluent speech, no tremor Psychiatric: Insight: good insight Judgement: good judgement Results & Data ([facility]) Vital Signs (Past 12 Hours) Vital Signs Temp Pulse Pulse Resp BP BP Pulse Ox 11/03/21 16:30 76 11/03/21 15:31 37.1 C 81 20 139/77 95 11/03/21 08:11 37 C 67 18 121/70 94 11/03/21 07:13 83 Laboratory Results 11/03/21 07:10 11/03/21 07:10 Diagnostic Findings TTE reviewed
--- NOTE | 2021-11-03 21:33 | Hospitalist Progress Note ---
Date of Service November 03, 2021 Assessment & Plan (1) UTI (urinary tract infection): (2) Sepsis: Plan: Pyelonephritis Met SIRS criteria on admission with elevated WBC, elevated heart rate, febrile Present on admission with abdominal pain associated with nausea, vomiting, chills CT abd/pelvis reviewed showing heterogenous enhancement involving the upper pole the right kidney with findings suspicious for a small renal infarct, no pyelonephritis, no renal calculus or hydronephrosis Elevated procalcitonin and WBC . urine cx grew gram negative bacilli - Escherichia species Received IV ceftriaxone on admission then switching to cefepime IV Abx changed to Rocephin WBC normalized slightly decreased to 16 K and elevated procalcitonin Blood culture positive for gram-negative bacilli Continue IV ceftriaxone Repeat blood cx pending continue pain management with Toradol and [place] Continue monitor closely Bacteremia Blood cx positive for gram negative bacilli Continue IV antibiotic with Rocephin Echo with no evidence of vegetation noted Repeat blood culture pending Abnormal radiologic findings on diagnostic imaging of renal pelvis, CT abd/pelvis showed heterogeneous enhancement involving the upper pole of the right kidney with findings suspicious for a small renal infarct. Nephrology on board Will need renal MRI once clinically improves or possible outpatient (3) Transaminitis: Plan: Pt said that she vomited this morning AST 46 and ALT 65 continue monitor LFT (4) Sinus tachycardia: Plan: Secondary to sepsis Heart rate improved resolved (5) Hypothyroidism: Plan: TSH 0.028 and T4 1.66 Will decrease levothyroxine to 150 mcg daily (6) Tobacco use: Plan: Counseling on smoking cessation DVT ppx: teds, scds, heparin subcu CODE: Full code Admission and Anticipated Discharge Date Admission Date: November 01, 2021 Subjective Patient was seen and examined for follow-up of left flank pain, bacteremia Lying in bed with no acute distress Pt said that she continues to have left flank discomfort She said that she did not sleep well last night She said that she vomited this morning Denies any chest pain, palpitation, dizziness, shortness of breath. Review of Systems Review of Systems: All systems reviewed & are unremarkable except as noted in Subjective Physical Exam Physical Exam: General- No acute distress Head- atraumatic Eyes- PERRL, EOMI, ENT- oropharynx clear Neck- supple, no JVD Lungs- clear to auscultation Heart- regular rhythm; no murmur Abdomen- normal bowel sounds, soft, nontender Extremities- no calf tenderness Neuro- alert, oriented x 3; PERRL, EOMI; no facial palsy; no dysarthria Skin- warm & dry Results & Data Results & Data ([facility]) Vital Signs (Past 12 Hours) Vital Signs Temp Pulse Pulse Resp BP Pulse Ox 11/03/21 19:22 37.6 C H 86 18 121/73 95 11/03/21 16:30 76 11/03/21 15:31 37.1 C 81 20 139/77 95
[2021-11-03] MEDS: MELATONIN 3 MG TAB PO PRN (23:33)
[2021-11-04] MEDS: SODIUM CHLORIDE 0.9% 1000ML 1,000 ML IV SCH (03:12)
[2021-11-04] MEDS: LEVOTHYROXINE SODIUM 150 MCG TABLET PO SCH (05:30)
[2021-11-04] MEDS: HEPARIN SOD 5,000 UNIT/0.5 ML VIAL SQ SCH ×2 (07:43→20:45)
[2021-11-04 08:28] LABS: Hematocrit (blood only) 30.2 % (37-47); Hemoglobin 10.1 g/dL (12.0-16.0); Mean Corpuscular Hemoglobin 32.7 pg (25-34); Mean Corpuscular Hgb Conc 33.4 g/dL (32-36); Mean Corpuscular Volume 97.7 fL (80-100); Mean Platelet Volume 9.5 fL (7.4-10.4); Platelet Count 208 K/uL (130-400); RDW Coefficient of Variation 15.1 % (11.5-14.5); Red Blood Count 3.09 M/uL (4.2-5.4); White Blood Count 7.13 K/uL (4.8-10.8)
[2021-11-04 08:51] LABS: Albumin Globulin Ratio 1.1 (0.9-2); Albumin Level 3.2 gm/dl (3.4-5.0); BUN Creatinine Ratio 21.7 (10-20); Bilirubin,Total 0.3 mg/dl (0.2-1.0); Calcium 9.3 mg/dl (8.5-10.1); Creatinine Clr Calc Pharmacy 86.4 ml/min; Est GFR (African American) 108.9 ml/min; Globulin 2.8 gm/dl (2.5-4.0); Potassium 4.1 mmol/L (3.5-5.1)
[2021-11-04] MEDS: HYDROcodone/ACETAMINOPHEN 10/325 TAB PO PRN (10:59)
[2021-11-04] MEDS: cefTRIAXone SODIUM 2,000 MG in DEXTROSE 5% 50 ML IV SCH (11:23)
--- NOTE | 2021-11-04 15:29 | Hospitalist Progress Note ---
Date of Service November 04, 2021 Assessment & Plan (1) UTI (urinary tract infection): (2) Sepsis: Plan: Pyelonephritis Met SIRS criteria on admission with elevated WBC, elevated heart rate, febrile Present on admission with abdominal pain associated with nausea, vomiting, chills CT abd/pelvis reviewed showing heterogenous enhancement involving the upper pole the right kidney with findings suspicious for a small renal infarct, no pyelonephritis, no renal calculus or hydronephrosis Elevated procalcitonin and WBC . urine cx grew gram negative bacilli - Escherichia species Received IV ceftriaxone on admission then switching to cefepime IV Abx changed to Rocephin -we will continue antibiotic for a total of 14 days WBC normalized slightly decreased to 16 K and elevated procalcitonin Blood culture positive for gram-negative bacilli Continue IV ceftriaxone Repeat blood cx -negative continue pain management with Toradol and [place] Clinically not much better We will ask for PT and OT evaluation Bacteremia Blood cx positive for gram negative bacilli Continue IV antibiotic with Rocephin Echo with no evidence of vegetation noted Repeat blood culture pending = negative Abnormal radiologic findings on diagnostic imaging of renal pelvis, CT abd/pelvis showed heterogeneous enhancement involving the upper pole of the right kidney with findings suspicious for a small renal infarct. Nephrology on board -appreciate input and recommendation Will need renal MRI once clinically improves or possible outpatient (3) Transaminitis: Plan: Pt said that she vomited this morning AST 46 and ALT 65 continue monitor LFT (4) Sinus tachycardia: Plan: Secondary to sepsis Heart rate improved resolved (5) Hypothyroidism: Plan: TSH 0.028 and T4 1.66 Will decrease levothyroxine to 150 mcg daily (6) Tobacco use: Plan: Counseling on smoking cessation DVT ppx: teds, scds, heparin subcu CODE: Full code Admission and Anticipated Discharge Date Admission Date: November 01, 2021 Subjective 11/04/2021 The patient was seen and examined in medical telemetry unit She has been feeling much better since admission Still feels generalized ache, backache, chills, headache and occasional nausea Her urinary symptoms are better Review of Systems Review of Systems: All systems reviewed and are unremarkable except as noted below Neurologic: Generalized weakness Physical Exam Physical Exam: Sitting on the bed with acute anxiety Constitutional: well developed, well nourished, + ill appearing and + obese Eyes: PERRL, conjunctivae normal, anicteric sclerae ENMT: external ear and nose normal, oropharynx normal Neck: trachea midline, no thyromegaly Respiratory: no respiratory distress Auscultation: lungs clear to auscultation bilaterally Cardiovascular: Rate/Rhythm: regular rate and regular rhythm; not tachycardic Extremities: no edema Gastrointestinal (Abdomen): Inspection/Auscultation: normal bowel sounds; abdomen not distended Percussion/Palpation: abdomen soft; abdomen nontender Musculoskeletal: No acute arthritis in any joint Neurologic: Alert, awake and oriented x3. No focal sensory and motor deficit appreciated Psychiatric: A+Ox3, euthymic affect Lymphatic: no cervical or axillary lymphadenopathy Results & Data Results & Data ([facility]) Vital Signs (Past 12 Hours) Vital Signs Temp Pulse Pulse Resp BP Pulse Ox 11/04/21 15:06 81 11/04/21 11:19 37.4 C 91 H 16 149/87 H 98 11/04/21 07:08 76 11/04/21 06:43 37.0 C 78 16 136/84 96 Laboratory Results Short CBC 11/04/21 Range/Units 07:43 WBC 7.13 (4.8-10.8) K/uL Hgb 10.1 L (12.0-16.0) g/dL Hct 30.2 L (37-47) % Plt Count 208 (130-400) K/uL BMP 11/04/21 07:43 Sodium 137 Potassium 4.1 Chloride 108 H Carbon Dioxide 24 BUN 15 Creatinine 0.69 Glucose 90 Calcium 9.3 Liver Function 11/04/21 Range/Units 07:43 Total Bilirubin 0.3 (0.2-1.0) mg/dl AST 79 H (13-39) U/L ALT 112 H (7-52) U/L Alkaline Phosphatase 111 H (34-104) U/L Albumin 3.2 L (3.4-5.0) gm/dl Medications Administered Current Inpatient Medications Hydrocodone Bitart/Acetaminophen (Hydrocodone/Acetaminophen 10/325 Tab) 1 tab PO Q6 PRN PRN Reason: Severe Pain (Scale Score 7-10) Stop: 11/15/21 19:05 Last Admin: 11/04/21 10:59 Dose: 1 tab Documented by: Carisoprodol (Carisoprodol 350 Mg Tablet) 350 mg PO TID PRN PRN Reason: Muscle Spasm Stop: 12/01/21 19:05 Last Admin: 11/01/21 20:08 Dose: 350 mg Documented by: Heparin Sodium (Porcine) (Heparin Sod 5,000 Unit/0.5 Ml Vial) 5,000 units SQ Q12 REGLA Stop: 12/01/21 20:59 Last Admin: 11/04/21 07:43 Dose: 5,000 units Documented by: Ceftriaxone Sodium 2,000 mg/ (Dextrose) 70 mls @ 140 mls/hr IV Q24H REGLA Stop: 11/16/21 11:59 Last Infusion: 11/04/21 12:10 Dose: Infused Documented by: Ketorolac Tromethamine (Ketorolac Tromethamine 15 Mg/Ml Vial) 15 mg IV Q8H PRN PRN Reason: Pain Stop: 11/07/21 18:39 Last Admin: 11/03/21 19:44 Dose: 15 mg Documented by: Levothyroxine Sodium (Levothyroxine Sodium 150 Mcg Tablet) 150 mcg PO DAILYBB [facility] Stop: 12/04/21 06:29 Last Admin: 11/04/21 05:30 Dose: 150 mcg Documented by: Melatonin (Melatonin 3 Mg Tab) 3 mg PO HS PRN PRN Reason: Sleep Stop: 12/02/21 22:24 Last Admin: 11/03/21 23:33 Dose: 3 mg Documented by: Ondansetron HCl (Ondansetron Inj 2 Mg/Ml 2 Ml Vial) 4 mg IV Q4H PRN PRN Reason: Nausea And Vomiting Stop: 12/01/21 17:47
[2021-11-04] MEDS: MELATONIN 3 MG TAB PO PRN (20:45)
[2021-11-04] MEDS: KETOROLAC TROMETHAMINE 15 MG/ML VIAL IV PRN (20:45)
[2021-11-05] MEDS ORDERED: SUMAtriptan succinate 50 MG TAB PO STA (04:37)
[2021-11-05] MEDS: LEVOTHYROXINE SODIUM 150 MCG TABLET PO SCH (05:36)
[2021-11-05] MEDS: HYDROcodone/ACETAMINOPHEN 10/325 TAB PO PRN ×2 (08:32→21:08)
[2021-11-05] MEDS: HEPARIN SOD 5,000 UNIT/0.5 ML VIAL SQ SCH ×2 (08:33→20:52)
[2021-11-05 08:40] LABS: Basophils # (auto) 0.01 K/uL (0-0.2); Basophils % (auto) 0.1 %; Eosinophils # (auto) 0.19 K/uL (0-0.5); Eosinophils % (auto) 2.6 %; Hemoglobin 9.8 g/dL (12.0-16.0); Immature Granulocytes # (auto) 0.02 K/uL (0.00-0.02); Immature Granulocytes % (auto) 0.3 %; Lymphocytes # (auto) 1.78 K/uL (1.2-3.4); Lymphocytes % (auto) 24.5 %; Mean Corpuscular Hemoglobin 31.2 pg (25-34); Mean Corpuscular Hgb Conc 32.7 g/dL (32-36); Mean Corpuscular Volume 95.5 fL (80-100); Mean Platelet Volume 9.5 fL (7.4-10.4); Monocytes # (auto) 0.76 K/uL (0.11-0.59); Monocytes % (auto) 10.5 %; Platelet Count 249 K/uL (130-400); RDW Coefficient of Variation 14.7 % (11.5-14.5); RDW Standard Deviation 51.6 fL (36.4-46.3); Red Blood Count 3.14 M/uL (4.2-5.4); White Blood Count 7.26 K/uL (4.8-10.8)
[2021-11-05 09:00] LABS: Albumin Level 3.3 gm/dl (3.4-5.0); BUN Creatinine Ratio 19.7 (10-20); Bilirubin,Total 0.3 mg/dl (0.2-1.0); Calcium 9.4 mg/dl (8.5-10.1); Creatinine Clr Calc Pharmacy 83.9 ml/min; Est GFR (African American) 106.5 ml/min; Est GFR (Non-African American) 91.9 ml/min; Potassium 3.9 mmol/L (3.5-5.1); Total Protein 6.1 gm/dl (6.0-8.3)
[2021-11-05] MEDS ORDERED: OPTIRAY 320 100ml IV ONE (11:31)
[2021-11-05] MEDS: amLODIPine BESYLATE 5 MG TAB PO SCH (11:43)
--- NOTE | 2021-11-05 12:08 | CT Scan Report ---
CT abd pelvis IV con only CLINICAL HISTORY: Increasing abd pain TECHNIQUE: Helical axial images of the abdomen and pelvis were obtained and displayed. Automated dose lowering techniques and/or adjustment according to patient size were utilized for this exam. This e xam was performed with intravenous contrast. CT DOSE: 400.91 mGycm COMPARISON: None available at the time of this dictation. FINDINGS: Lower chest: No acute abnormality Liver: Unremarkable. No focal lesions are seen. Gallbladder and biliary tree: The gallbladder wall measures approximately 3 mm. Proptosis is edema is seen. No intra- or extrahepatic biliary ductal dilation. Pancreas: Unremarkable, no focal lesions. Spleen: Unremarkable. Adrenals: Unremarkable. Kidneys and ureters: There is appearance of chronic renal scarring, unchanged from prior exam. Bladder: Unremarkable. Reproductive organs: Unremarkable. Bowel: The appendix is absent, likely status post appendectomy. No evidence of bowel obstruction is s een. Lymph nodes Retroperitoneal: Subcentimeter lymph nodes are noted. Mesenteric: Unremarkable. Pelvic: Unremarkable. Peritoneum: A small amount of peritoneal fluid is seen. Vessels: Atherosclerotic calcifications are seen. Abdominal wall: Unremarkable. Bones: Degenerative changes in the visualized spine. Grade 1 anterolisthesis is seen at L3-L4. IMPRESSION: 1. Minimal prominence of the gallbladder wall with pericholecystic edema which may represent acute c holecystitis. If clinical concern remains, ultrasound of the right upper quadrant can be performed to further evaluate this finding. There is a small amount of peritoneal fluid, new from prior exam. 2. Subcentimeter lymph nodes in the retroperitoneum are unchanged from prior exam. ACT 112: Negative or not required by law. Electronically signed by: Dawit Woo M.D. 11/05/2021 12:06 PM
[2021-11-05] MEDS: cefTRIAXone SODIUM 2,000 MG in DEXTROSE 5% 50 ML IV SCH (12:59)
--- NOTE | 2021-11-05 14:52 | Hospitalist Progress Note ---
Date of Service November 05, 2021 Assessment & Plan (1) UTI (urinary tract infection): (2) Sepsis: Plan: Pyelonephritis Met SIRS criteria on admission with elevated WBC, elevated heart rate, febrile Present on admission with abdominal pain associated with nausea, vomiting, chills CT abd/pelvis reviewed showing heterogenous enhancement involving the upper pole the right kidney with findings suspicious for a small renal infarct, no pyelonephritis, no renal calculus or hydronephrosis Elevated procalcitonin and WBC . urine cx grew gram negative bacilli - Escherichia species Received IV ceftriaxone on admission then switching to cefepime IV Abx changed to Rocephin -we will continue antibiotic for a total of 14 days WBC normalized slightly decreased to 16 K and elevated procalcitonin Blood culture positive for gram-negative bacilli Continue IV ceftriaxone Repeat blood cx -negative continue pain management with Toradol and [place] Clinically not much better We will ask for PT and OT evaluation-pending Bacteremia Blood cx positive for gram negative bacilli Continue IV antibiotic with Rocephin Echo with no evidence of vegetation noted Repeat blood culture pending = negative Abnormal radiologic findings on diagnostic imaging of renal pelvis, CT abd/pelvis showed heterogeneous enhancement involving the upper pole of the right kidney with findings suspicious for a small renal infarct. Nephrology on board -appreciate input and recommendation Will need renal MRI once clinically improves or possible outpatient Repeat CT of the abdomen and pelvis showed: IMPRESSION: 1. Minimal prominence of the gallbladder wall with pericholecystic edema which may represent acute cholecystitis. If clinical concern remains, ultrasound of the right upper quadrant can be performed to further evaluate this finding. There is a small amount of peritoneal fluid, new from prior exam. 2. Subcentimeter lymph nodes in the retroperitoneum are unchanged from prior exam. (3) Transaminitis: Plan: Pt said that she vomited this morning AST 46 and ALT 65 continue monitor LFT -LFTs remains elevated Repeat CT scan did show possible cholecystitis We will get an ultrasound of the liver and gallbladder (4) Sinus tachycardia: Plan: Secondary to sepsis Heart rate improved resolved (5) Hypothyroidism: Plan: TSH 0.028 and T4 1.66 Will decrease levothyroxine to 150 mcg daily (6) Tobacco use: Plan: Counseling on smoking cessation DVT ppx: teds, scds, heparin subcu CODE: Full code Admission and Anticipated Discharge Date Admission Date: November 01, 2021 Subjective 11/04/2021 The patient was seen and examined in medical telemetry unit She has been feeling much better since admission Still feels generalized ache, backache, chills, headache and occasional nausea Her urinary symptoms are better 11/05/2021 The patient was seen and examined in medical telemetry unit She is still not yet any better compared with yesterday Complains to have lower abdominal discomfort with abdominal fullness Denies any fever and or chills, denies any nausea and or vomiting Review of Systems Review of Systems: All systems reviewed and are unremarkable except as noted below Neurologic: Generalized weakness Physical Exam Physical Exam: Sitting on the bed with acute anxiety Constitutional: well developed, well nourished, + ill appearing and + obese Eyes: PERRL, conjunctivae normal, anicteric sclerae ENMT: external ear and nose normal, oropharynx normal Neck: trachea midline, no thyromegaly Respiratory: no respiratory distress Auscultation: lungs clear to auscultation bilaterally Cardiovascular: Rate/Rhythm: regular rate and regular rhythm; not tachycardic Extremities: no edema Gastrointestinal (Abdomen): Inspection/Auscultation: normal bowel sounds; abdomen not distended Percussion/Palpation: + abdomen tender (Minimally tender lower quadrants) and abdomen soft Psychiatric: A+Ox3, euthymic affect Lymphatic: no cervical or axillary lymphadenopathy Results & Data Results & Data ([facility]) Vital Signs (Past 12 Hours) Vital Signs Temp Pulse Pulse Resp BP BP Pulse Ox 11/05/21 11:45 37.1 C 70 16 153/97 H 96 11/05/21 08:00 76 11/05/21 06:56 37.5 C 85 18 165/90 H 93 Laboratory Results Short CBC 11/05/21 Range/Units 08:09 WBC 7.26 (4.8-10.8) K/uL Hgb 9.8 L (12.0-16.0) g/dL Hct 30.0 L (37-47) % Plt Count 249 (130-400) K/uL BMP 11/05/21 08:09 Sodium 140 Potassium 3.9 Chloride 107 Carbon Dioxide 27 BUN 14 Creatinine 0.71 Glucose 96 Calcium 9.4 Liver Function 11/05/21 Range/Units 08:09 Total Bilirubin 0.3 (0.2-1.0) mg/dl Direct Bilirubin 0.0 (0-0.2) mg/dl AST 74 H (13-39) U/L ALT 120 H (7-52) U/L Alkaline Phosphatase 142 H (34-104) U/L Albumin 3.3 L (3.4-5.0) gm/dl Medications Administered Current Inpatient Medications Hydrocodone Bitart/Acetaminophen (Hydrocodone/Acetaminophen 10/325 Tab) 1 tab PO Q6 PRN PRN Reason: Severe Pain (Scale Score 7-10) Stop: 11/15/21 19:05 Last Admin: 11/05/21 08:32 Dose: 1 tab Documented by: Amlodipine Besylate (Amlodipine Besylate 5 Mg Tab) 5 mg PO QAM [facility] Stop: 12/05/21 10:44 Last Admin: 11/05/21 11:43 Dose: 5 mg Documented by: Carisoprodol (Carisoprodol 350 Mg Tablet) 350 mg PO TID PRN PRN Reason: Muscle Spasm Stop: 12/01/21 19:05 Last Admin: 11/01/21 20:08 Dose: 350 mg Documented by: Heparin Sodium (Porcine) (Heparin Sod 5,000 Unit/0.5 Ml Vial) 5,000 units SQ Q12 REGLA Stop: 12/01/21 20:59 Last Admin: 11/05/21 08:33 Dose: 5,000 units Documented by: Ceftriaxone Sodium 2,000 mg/ (Dextrose) 70 mls @ 140 mls/hr IV Q24H [facility] Stop: 11/16/21 11:59 Last Infusion: 11/05/21 13:29 Dose: Infused Documented by: Ketorolac Tromethamine (Ketorolac Tromethamine 15 Mg/Ml Vial) 15 mg IV Q8H PRN PRN Reason: Pain Stop: 11/07/21 18:39 Last Admin: 11/04/21 20:45 Dose: 15 mg Documented by: Levothyroxine Sodium (Levothyroxine Sodium 150 Mcg Tablet) 150 mcg PO DAILYBB [facility] Stop: 12/04/21 06:29 Last Admin: 11/05/21 05:36 Dose: 150 mcg Documented by: Melatonin (Melatonin 3 Mg Tab) 3 mg PO HS PRN PRN Reason: Sleep Stop: 12/02/21 22:24 Last Admin: 11/04/21 20:45 Dose: 3 mg Documented by: Ondansetron HCl (Ondansetron Inj 2 Mg/Ml 2 Ml Vial) 4 mg IV Q4H PRN PRN Reason: Nausea And Vomiting Stop: 12/01/21 17:47
--- NOTE | 2021-11-05 17:56 | Ultrasound Report ---
US abdomen limited HISTORY: 61 years-old Female R/O Cholecystitis acute right upper quadrant abdominal pain COMPARISON: CT abdomen and pelvis of same day TECHNIQUE: Multiple real-time sonographic images of the abdominal right upper quadrant were obtained assessing grayscale appearance and color flow FINDINGS: The visualized pancreas is unremarkable. No pancreatic ductal dilation. The liver is within normal li mits measuring 16.9 cm in length. Gallbladder is contracted. No associated significant wall thickenin g, cholelithiasis or pericholecystic fluid. Sonographic Roland sign reported as negative. Normal comm on bile duct measures 1 mm. The imaged right kidney is unremarkable without hydronephrosis. IMPRESSION: 1. No cholelithiasis or sonographic evidence of acute cholecystitis. 2. No biliary ductal dilation. ACT 112: Negative or not required by law. The above report was generated using voice recognition software. It may contain grammatical, syntax o r spelling errors. Electronically signed by: Reginald Green M.D. 11/05/2021 5:54 PM
[2021-11-05] MEDS: MELATONIN 3 MG TAB PO PRN (21:08)
[2021-11-05] MEDS: KETOROLAC TROMETHAMINE 15 MG/ML VIAL IV PRN (22:37)
[2021-11-06] MEDS: LEVOTHYROXINE SODIUM 150 MCG TABLET PO SCH (05:44)
[2021-11-06 06:27] LABS: Basophils # (auto) 0.03 K/uL (0-0.2); Basophils % (auto) 0.5 %; Eosinophils # (auto) 0.23 K/uL (0-0.5); Eosinophils % (auto) 3.8 %; Hematocrit (blood only) 28.9 % (37-47); Hemoglobin 9.5 g/dL (12.0-16.0); Immature Granulocytes # (auto) 0.05 K/uL (0.00-0.02); Immature Granulocytes % (auto) 0.8 %; Lymphocytes # (auto) 2.46 K/uL (1.2-3.4); Lymphocytes % (auto) 40.3 %; Mean Corpuscular Hgb Conc 32.9 g/dL (32-36); Mean Corpuscular Volume 97.3 fL (80-100); Mean Platelet Volume 9.3 fL (7.4-10.4); Monocytes # (auto) 0.62 K/uL (0.11-0.59); Monocytes % (auto) 10.1 %; Neutrophils # (auto) 2.72 K/uL (1.4-6.5); Neutrophils % (auto) 44.5 %; Platelet Count 281 K/uL (130-400); RDW Coefficient of Variation 14.7 % (11.5-14.5); RDW Standard Deviation 52.3 fL (36.4-46.3); Red Blood Count 2.97 M/uL (4.2-5.4); White Blood Count 6.11 K/uL (4.8-10.8)
[2021-11-06 06:49] LABS: Albumin Globulin Ratio 1.2 (0.9-2); Albumin Level 3.1 gm/dl (3.4-5.0); Bilirubin,Total 0.3 mg/dl (0.2-1.0); Calcium 9.4 mg/dl (8.5-10.1); Creatinine Clr Calc Pharmacy 77.7 ml/min; Est GFR (African American) 99.7 ml/min; Globulin 2.6 gm/dl (2.5-4.0); Potassium 3.9 mmol/L (3.5-5.1); Total Protein 5.7 gm/dl (6.0-8.3)
[2021-11-06] MEDS: amLODIPine BESYLATE 5 MG TAB PO SCH (08:08)
[2021-11-06] MEDS: HYDROcodone/ACETAMINOPHEN 10/325 TAB PO PRN (08:08)
[2021-11-06] MEDS: HEPARIN SOD 5,000 UNIT/0.5 ML VIAL SQ SCH (08:09)
[2021-11-06] MEDS ORDERED: CIPROFLOXACIN 500 MG TAB PO SCH (09:00)
--- NOTE | 2021-11-06 14:25 | Hospitalist Progress Note ---
Date of Service November 06, 2021 Assessment & Plan (1) UTI (urinary tract infection): (2) Sepsis: Plan: Pyelonephritis Met SIRS criteria on admission with elevated WBC, elevated heart rate, febrile Present on admission with abdominal pain associated with nausea, vomiting, chills CT abd/pelvis reviewed showing heterogenous enhancement involving the upper pole the right kidney with findings suspicious for a small renal infarct, no pyelonephritis, no renal calculus or hydronephrosis Elevated procalcitonin and WBC . urine cx grew gram negative bacilli - Escherichia species Received IV ceftriaxone on admission then switching to cefepime IV Abx changed to Rocephin -we will continue antibiotic for a total of 14 days WBC normalized slightly decreased to 16 K and elevated procalcitonin Blood culture positive for gram-negative bacilli Continue IV ceftriaxone Repeat blood cx -negative continue pain management with Toradol and [place] Has been feeling a lot better today and ambulating in the room without any difficulties We will get PT and OT evaluation prior to discharge this afternoon Bacteremia Blood cx positive for gram negative bacilli Continue IV antibiotic with Rocephin Echo with no evidence of vegetation noted Repeat blood culture pending = negative Antibiotic changed to oral Cipro to continue for a total of 14 days We will get an EKG Abnormal radiologic findings on diagnostic imaging of renal pelvis, CT abd/pelvis showed heterogeneous enhancement involving the upper pole of the right kidney with findings suspicious for a small renal infarct. Nephrology on board -appreciate input and recommendation Will need renal MRI once clinically improves or possible outpatient Repeat CT of the abdomen and pelvis showed: IMPRESSION: 1. Minimal prominence of the gallbladder wall with pericholecystic edema which may represent acute cholecystitis. If clinical concern remains, ultrasound of the right upper quadrant can be performed to further evaluate this finding. There is a small amount of peritoneal fluid, new from prior exam. 2. Subcentimeter lymph nodes in the retroperitoneum are unchanged from prior exam. Will have outpatient renal MRI as planned before (3) Transaminitis: Plan: Pt said that she vomited this morning AST 46 and ALT 65 continue monitor LFT -LFTs remains elevated Repeat CT scan did show possible cholecystitis We will get an ultrasound of the liver and gallbladder No evidence of acute cholecystitis (4) Sinus tachycardia: Plan: Secondary to sepsis Heart rate improved resolved (5) Hypothyroidism: Plan: TSH 0.028 and T4 1.66 Will decrease levothyroxine to 150 mcg daily (6) Tobacco use: Plan: Counseling on smoking cessation DVT ppx: teds, scds, heparin subcu CODE: Full code Admission and Anticipated Discharge Date Admission Date: November 01, 2021 Subjective 11/04/2021 The patient was seen and examined in medical telemetry unit She has been feeling much better since admission Still feels generalized ache, backache, chills, headache and occasional nausea Her urinary symptoms are better 11/05/2021 The patient was seen and examined in medical telemetry unit She is still not yet any better compared with yesterday Complains to have lower abdominal discomfort with abdominal fullness Denies any fever and or chills, denies any nausea and or vomiting 11/06/2021 The patient was seen and examined in medical telemetry unit She complains to have some headache and minimal abdominal discomfort She denies any nausea or vomiting or any abdominal bloating Has been ambulating in the room without any difficulties Review of Systems Review of Systems: All systems reviewed and are unremarkable except as noted below Neurologic: Generalized weakness Physical Exam Physical Exam: Sitting on the bed with acute anxiety Constitutional: well developed, well nourished, + ill appearing and + obese Eyes: PERRL, conjunctivae normal, anicteric sclerae ENMT: external ear and nose normal, oropharynx normal Neck: trachea midline, no thyromegaly Respiratory: no respiratory distress Auscultation: lungs clear to auscultation bilaterally Cardiovascular: Rate/Rhythm: regular rate and regular rhythm; not tachycardic Extremities: no edema Gastrointestinal (Abdomen): Inspection/Auscultation: normal bowel sounds; abdomen not distended Percussion/Palpation: + abdomen tender (Minimally tender lower quadrants) and abdomen soft Musculoskeletal: No acute arthritis in any joint Neurologic: normal touch/pain/proprioception Psychiatric: A+Ox3, euthymic affect Lymphatic: no cervical or axillary lymphadenopathy Results & Data Results & Data ([facility]) Vital Signs (Past 12 Hours) Vital Signs Temp Pulse Pulse Resp BP BP Pulse Ox 11/06/21 07:57 36.9 C 61 20 156/86 H 95 11/06/21 06:08 122 H 11/06/21 04:32 36.9 C 81 18 159/93 H 91 Laboratory Results Short CBC 11/06/21 Range/Units 05:42 WBC 6.11 (4.8-10.8) K/uL Hgb 9.5 L (12.0-16.0) g/dL Hct 28.9 L (37-47) % Plt Count 281 (130-400) K/uL BMP 11/06/21 05:42 Sodium 142 Potassium 3.9 Chloride 107 Carbon Dioxide 29 BUN 15 Creatinine 0.75 Glucose 97 Calcium 9.4 Liver Function 11/06/21 Range/Units 05:42 Total Bilirubin 0.3 (0.2-1.0) mg/dl AST 45 H (13-39) U/L ALT 95 H (7-52) U/L Alkaline Phosphatase 122 H (34-104) U/L Albumin 3.1 L (3.4-5.0) gm/dl Medications Administered Current Inpatient Medications Hydrocodone Bitart/Acetaminophen (Hydrocodone/Acetaminophen 10/325 Tab) 1 tab PO Q6 PRN PRN Reason: Severe Pain (Scale Score 7-10) Stop: 11/15/21 19:05 Last Admin: 11/06/21 08:08 Dose: 1 tab Documented by: Amlodipine Besylate (Amlodipine Besylate 5 Mg Tab) 5 mg PO QAM REGLA Stop: 12/05/21 10:44 Last Admin: 11/06/21 08:08 Dose: 5 mg Documented by: Carisoprodol (Carisoprodol 350 Mg Tablet) 350 mg PO TID PRN PRN Reason: Muscle Spasm Stop: 12/01/21 19:05 Last Admin: 11/01/21 20:08 Dose: 350 mg Documented by: Ciprofloxacin (Ciprofloxacin 500 Mg Tab) 500 mg PO BID [facility] Stop: 11/10/21 21:01 Last Admin: 11/06/21 09:32 Dose: 500 mg Documented by: Heparin Sodium (Porcine) (Heparin Sod 5,000 Unit/0.5 Ml Vial) 5,000 units SQ Q12 REGLA Stop: 12/01/21 20:59 Last Admin: 11/06/21 08:09 Dose: 5,000 units Documented by: Ketorolac Tromethamine (Ketorolac Tromethamine 15 Mg/Ml Vial) 15 mg IV Q8H PRN PRN Reason: Pain Stop: 11/07/21 18:39 Last Admin: 11/05/21 22:37 Dose: 15 mg Documented by: Levothyroxine Sodium (Levothyroxine Sodium 150 Mcg Tablet) 150 mcg PO DAILYBB [facility] Stop: 12/04/21 06:29 Last Admin: 11/06/21 05:44 Dose: 150 mcg Documented by: Melatonin (Melatonin 3 Mg Tab) 3 mg PO HS PRN PRN Reason: Sleep Stop: 12/02/21 22:24 Last Admin: 11/05/21 21:08 Dose: 3 mg Documented by: Ondansetron HCl (Ondansetron Inj 2 Mg/Ml 2 Ml Vial) 4 mg IV Q4H PRN PRN Reason: Nausea And Vomiting Stop: 12/01/21 17:47
--- NOTE | 2021-11-06 16:02 | Electrocardiogram Report ---
Test Reason : Blood Pressure : / mmHG Vent. Rate : 066 BPM Atrial Rate : 066 BPM P-R Int : 168 ms QRS Dur : 086 ms QT Int : 392 ms P-R-T Axes : 072 045 048 degrees QTc Int : 410 ms Normal sinus rhythm Poor R wave progression, consider anterior NH vs. lead placement vs. LVH Abnormal ECG When compared with ECG of 01-NOV-2021 14:58, Vent. rate has decreased BY 65 BPM Confirmed by Richard Thompson ([id number]) on 11/06/2021 4:02:24 PM Referred By: REFERRED SELF Confirmed By:Richard Thompson
[2021-11-06] MEDS ORDERED: CIPROFLOXACIN 500 MG TAB PO STA (16:49)
--- NOTE | 2021-11-06 17:51 | Discharge Summary ---
Date of Service November 06, 2021 Admission HPI Per Admitting Provider This is a 61-year-old female with PMHx of hypothyroidism, insomnia, osteoporosis, tobacco use who presents to the ER with acute onset of vomiting. She reports that she started not feeling well on Tuesday, worsened on Tuesday and then this morning could barely do anything. She has significant rigors currently, and reports intermittent fever/chills. She jackeline been taking Tylenol and ibuprofen. She is having some lower abdominal cramping, dysuria with urination, denies hematuria. She has been unable to tolerate much p.o. intake due to not feeling well, this morning she took her home medications but then vomited them up. She is vomiting at bedside which is the first time she has done this since being in the ER. Patient is febrile with a temp of 38.7 despite being given Tylenol already. is present at bedside and supports the history. Admission Exam Per Admitting Provider Physical Exam: General: awake, alert, + severe rigors, + nauseous, + vomiting Head: Normocephalic, atraumatic ENT: PERRL, EOMI, no pharyngeal exudate, mucous membranes moist Chest: Clear to auscultation, on room air, no adventitious breath sounds Cardiac: sinus tachy, HR in 120s, no murmur, no JVD, normal peripheral pulses, good capillary refill Abdominal: NABS x 4 quadrants, soft, nondistended, nontender to palpation, no rebound or guarding Extremities: Normal inspection, no peripheral edema or erythema, calfs nontender to palpation Psych: Normal mood and affect Neuro: AAO x 3, strength intact bilaterally and rated 5/5, no motor deficits, speech is clear, no peripheral sensory deficits Principal Diagnosis Sepsis secondary to UTI, E. coli bacteremia, possible small right upper pole kidney infarction, transaminitis Discharge Exam Sitting on the bed with acute anxiety Constitutional well developed, well nourished, + ill appearing and + obese Eyes PERRL, conjunctivae normal, anicteric sclerae ENMT external ear and nose normal, oropharynx normal Neck trachea midline, no thyromegaly Respiratory no respiratory distress Auscultation: lungs clear to auscultation bilaterally Cardiovascular Rate/Rhythm: regular rate and regular rhythm; not tachycardic Extremities: no edema Gastrointestinal (Abdomen) Inspection/Auscultation: normal bowel sounds; abdomen not distended Percussion/Palpation: + abdomen tender (Minimally tender lower quadrants) and abdomen soft Neurologic normal touch/pain/proprioception Psychiatric A+Ox3, euthymic affect Lymphatic no cervical or axillary lymphadenopathy Discharge Data Allergies Allergy/AdvReac Type Severity Reaction Status Date / Time penicillin G Allergy Unknown HIVES/ Unverified 11/01/21 17:29 SWELLING Consultations 11/01/21 17:10 ED Decision to Admit Stat Ordered Studies 11/01/21 14:33 CT abd pelvis IV con only Stat 11/05/21 10:27 CT abd pelvis IV con only Urgent 11/05/21 12:38 US abdomen limited Urgent Hospital Course (1) UTI (urinary tract infection): (2) Sepsis: Pyelonephritis Met SIRS criteria on admission with elevated WBC, elevated heart rate, febrile Present on admission with abdominal pain associated with nausea, vomiting, chills CT abd/pelvis reviewed showing heterogenous enhancement involving the upper pole the right kidney with findings suspicious for a small renal infarct, no pyelonephritis, no renal calculus or hydronephrosis Elevated procalcitonin and WBC . urine cx grew gram negative bacilli - Escherichia species Received IV ceftriaxone on admission then switching to cefepime IV Abx changed to Rocephin -we will continue antibiotic for a total of 14 days WBC normalized slightly decreased to 16 K and elevated procalcitonin Blood culture positive for gram-negative bacilli Continue IV ceftriaxone Repeat blood cx -negative continue pain management with Toradol and [place] Has been feeling a lot better today and ambulating in the room without any difficulties We will get PT and OT evaluation prior to discharge this afternoon Bacteremia Blood cx positive for gram negative bacilli Continue IV antibiotic with Rocephin Echo with no evidence of vegetation noted Repeat blood culture pending = negative Antibiotic changed to oral Cipro to continue for a total of 14 days We will get an EKG Abnormal radiologic findings on diagnostic imaging of renal pelvis, CT abd/pelvis showed heterogeneous enhancement involving the upper pole of the right kidney with findings suspicious for a small renal infarct. Nephrology on board -appreciate input and recommendation Will need renal MRI once clinically improves or possible outpatient Repeat CT of the abdomen and pelvis showed: IMPRESSION: 1. Minimal prominence of the gallbladder wall with pericholecystic edema which may represent acute cholecystitis. If clinical concern remains, ultrasound of the right upper quadrant can be performed to further evaluate this finding. There is a small amount of peritoneal fluid, new from prior exam. 2. Subcentimeter lymph nodes in the retroperitoneum are unchanged from prior exam. Will have outpatient renal MRI as planned before (3) Transaminitis: Pt said that she vomited this morning AST 46 and ALT 65 continue monitor LFT -LFTs remains elevated Repeat CT scan did show possible cholecystitis We will get an ultrasound of the liver and gallbladder No evidence of acute cholecystitis (4) Sinus tachycardia: Secondary to sepsis Heart rate improved resolved (5) Hypothyroidism: TSH 0.028 and T4 1.66 Will decrease levothyroxine to 150 mcg daily (6) Tobacco use: Counseling on smoking cessation DVT ppx: teds, scds, heparin subcu CODE: Full code Total Time Total Time Spent Total Time Spent (In Minutes): 35 minutes Discharge Plan Discharge Items Patient Disposition: Home - Self-Care Reason For Visit: UTI, SEPSIS Discharge Diagnosis: Sepsis secondary to UTI, E. coli bacteremia, possible small right upper pole kidney infarction, transaminitis Condition on Discharge: Fair Activity: Resume your previous activity Non-emergency contact: Primary Care Provider Call non-emergency contact if: you have any medication questions and your symptoms worsen Follow-up/Referrals: Segundo Lindsay MD [Primary Care Provider] - (Date & Time 11/13/2021 10:00 AM Provider Segundo Lindsay MD [facility] ) Diet: Low Fiber Addtl Attending Provider Instructions: Please take precautions to avoid falls Take your medications as advised Please give appointment with your healthcare provider Will need an appointment with outpatient [facility] Urologist Please do not use nausea medicine as long as you are on antibiotic Pending Studies at Discharge: No Stand-Alone Forms: My [employer], Smoking Cessation Medications and DC Order Prescriptions: New amlodipine [Norvasc] 5 mg Tablet 5 mg PO QAM 30 Days Qty: 30 RF: 0 ciprofloxacin HCl 500 mg Tablet 500 mg PO BID 5 Days Qty: 10 RF: 0 Continued carisoprodol 350 mg tablet 350 mg PO TID PRN (Reason: Muscle Spasm) RF: 0 levothyroxine 175 mcg tablet 175 mcg PO DAILY RF: 0 sumatriptan succinate 100 mg tablet 100 mg PO DIRECTED RF: 0 ondansetron HCl 8 mg tablet 8 mg PO Q8 PRN (Reason: Nausea) RF: 0 hydrocodone-acetaminophen 10-325 mg tablet 1 tab PO Q6 PRN (Reason: Severe Pain (Scale Score 7-10)) RF: 0 zolmitriptan 5 mg tablet 5 mg PO DIRECTED RF: 0 ibuprofen [Advil] 200 mg Tablet 400 mg PO Q6H PRN (Reason: Pain) RF: 0 Discharge Orders: Discharge Order (Routine); Ordered 11/06/21 Ordered By: Barbara Best Admission Data Admit Date/Time: 11/01/21 16:55 Attending Provider: Barbara Best Admit Provider: Marleen Bella Primary Care Provider: Segundo Lindsay Other Providers: Marleen Bella Other Interventions: Discharge Summary Assessment (RN) Last Done: 11/06/21 16:19
== END 2021-11-06 18:15 | disposition home or self-care (01) | DRG 872 ==
LOC: ED 14:13 → SUATTDRO 16:55 → EDINP 16:55 → 2N 18:20
DX: Z79.890 Hormone replacement therapy; A41.51 Sepsis due to Escherichia coli [E. coli]; E03.9 Hypothyroidism, unspecified; F17.210 Nicotine dependence, cigarettes, uncomplicated; Z88.0 Allergy status to penicillin; M81.0 Age-related osteoporosis without current pathological fracture; N12 Tubulo-interstitial nephritis, not specified as acute or chronic; N28.0 Ischemia and infarction of kidney

== ENCOUNTER 2021-11-13 11:37 | Inpatient (IN) ==
[2021-11-13] MEDS ORDERED: SODIUM CHLORIDE 0.9% 1000ML 1,000 ML IV STA (11:46)
[2021-11-13] MEDS ORDERED: fentaNYL citrate 100 MCG/2 ML VIAL IV STA (11:56)
--- NOTE | 2021-11-13 12:02 | Emergency Department Note ---
Impression & Plan Weakness, Sinus tachycardia, Left flank pain, Pyelonephritis ED Provider Note Provider: Alvino Simeon MD DATE OF SERVICE: 11/13/2021 CHIEF COMPLAINT: Weakness, bladder discomfort HISTORY OF PRESENT ILLNESS: Patient is a 61-year-old female history of recent hospitalization for E. coli bacteremia from a urinary source presenting here today referred by her doctor's office for evaluation of weakness and tachycardia. Patient states she finished her Cipro antibiotic last night does not have fevers but been feeling very fatigued. Near syncopal. Reports some dyspnea on exertion but denies chest pain. Some pain in the left flank and left lower quadrant of the abdomen has returned since improving during hospitalization here. Patient denies trauma or syncope or falls. Patient states she is liquid oxycodone this morning for the pain which minimally helped. Patient states she is a history of significant ear infections in the past. REVIEW OF SYSTEMS: A total of 10 review of systems was obtained and negative except as stated above in the HPI. PAST MEDICAL HISTORY: As noted above MEDICATIONS: Reviewed home medication list SOCIAL HISTORY: Smoker, lives at home PHYSICAL EXAM: GENERAL: alert and oriented in no acute distress on stretcher Head: normocephalic and atraumatic EYES: No injection, discharge or icterus. PERRL NECK: Trachea midline. Supple. ENT: Mucous membranes pink and moist. LUNGS: Airway patent. No retractions. Breath sounds clear with good air entry bilaterally. HEART: Regular tachycardic rate and rhythm. No chest wall tenderness ABDOMEN: Soft with some mild left abdominal pain radiating to left flank. No right upper quadrant right-sided abdominal pain. SKIN: Acyanotic, warm, dry, without rashes EXTREMITIES: Without swelling, tenderness or deformity NEUROLOGICAL: No focal deficits. No aphasia. No facial droop or slurred speech. Normal strength and tone in the extremities. Sensation to gross touch normal. Ambulatory. EK bpm sinus tachycardia. No PVC or PAC. No acute ST segment elevation or depression with some prominent lateral T waves. QTc 456. Compared to previous from November 06 of this year increased heart rate but similar morphology. CONTINUOUS CARDIAC MONITORING: was ordered and showed a heart rate of 80s-130s bpm in normal sinus rhythm to sinus tachycardia Patient's laboratory studies and imaging reviewed. Differential includes Infection, dehydration, metabolic abnormality, hypo/hyperglycemia, electrolyte disturbance, anemia, hypoxia, cardiac sources, intracerebral event, toxicologic, neurologic, as well as other pathologies. IMPRESSION/MEDICAL DECISION MAKING: Reviewed medical record with recent hospitalization here with bacteremia and UTI. Redeveloped flank pain and with significant weakness as well as tach ycardia upon arrival. Some mild dyspnea on exertion but not hypoxic here. Question recurrence of infection versus other process. Given recent hospitalization will exclude PE with a tachycardia with a CT of the chest as well as complete a CT abdomen pelvis to evaluate if she developed kidney stones or other inflammatory infectious pathology in the left flank. Given IV fluid hydration here with some improvement of her heart rate. Hypertensive here. Given >30ml/kg IVF. Blood work and x-rays obtained. Chest x-ray without significant acute findings noted per radiology. Negative COVID test. No anemia. Mild leukocytosis likely increased compared to recent values prior to discharge here last week. No evidence acute hepatitis or pancreatitis. High sensitive troponin is not elevated and I doubt this represents ACS. No significant electrolyte abnormality noted. No evidence of pulmonary embolism on imaging per radiology. Urinalysis not overly impressive for infection however CT scan per radiology question some inflammation and possible nephritis left kidney. Given this and her recent history although her tachycardia improving feel that with the uptrending white count and still symptoms further observation here is indicated. Blood and urine cultures are pending. Covered empirically with cefepime. Patient updated and agreeable to this plan. Hospitalist contacted. DIAGNOSIS: Left pyelonephritis, tachycardia, weakness DISPOSITION: Hospitalist will evaluate Patient was agreeable with this plan. Past Med/Surg History Medical History Benign tumor of abdominal wall Hypothyroidism Insomnia Migraine Mood disorder Osteoporosis Tobacco use Surgical History (Updated 11/13/21 @ 16:18 by Denisha Lockhart PA-C) History of partial hysterectomy Hx of appendectomy Hx of tonsillectomy Previous section Family History Father Cancer Heart disease Mother Uterine cancer Aunt Breast cancer Social History Smoking Status: Current every day smoker Cigarettes Per Day: 1/2 PPD; Second Hand Exposure: No; Do You Dip or Chew Tobacco: No; Tobacco Cessation Education Requested by Patient: No Hx Alcohol Use: Yes Alcohol type: wine Hx Substance Use: No Preferred Language: Korean Communication Ability: Effective Cyber Security Specialist Required: No Beliefs That Will Affect Care: None Current Living Situation: Spouse Other Information That Helps Us Care for You: No Feels Safe at Home: Yes Safety Concerns: Feels Safe At This Time Assistive Devices: Denture - Upper Allergies Allergies Allergy/AdvReac Type Severity Reaction Status Date / Time penicillin G Allergy Unknown HIVES/ Unverified 11/13/21 15:47 SWELLING Home Meds Home Medications Medication Instructions Recorded Confirmed carisoprodol 350 mg tablet 350 mg PO TID PRN 11/01/21 11/13/21 hydrocodone 10 mg-acetaminophen 1 tab PO Q6 PRN 11/01/21 11/13/21 325 mg tablet ibuprofen 200 mg tablet (Advil) 400 mg PO Q6H PRN 11/01/21 11/13/21 ondansetron HCl 8 mg tablet 8 mg PO Q8 PRN 11/01/21 11/13/21 sumatriptan succinate 100 mg tablet 100 mg PO DIRECTED 11/01/21 11/13/21 zolmitriptan 5 mg tablet 5 mg PO DIRECTED 11/01/21 11/13/21 levothyroxine 150 mcg tablet 150 mcg PO DAILY 11/13/21 11/13/21 Previous Rx's Medication Instructions Recorded amlodipine 5 mg tablet (Norvasc) 5 mg PO QAM 30 Days #30 tab 11/06/21 Results & Data (ED) Vital Signs Vital Signs - 24 hr 11/13/21 11:42 11/13/21 11:55 11/13/21 12:00 Temperature 36.5 C Temperature Source Temporal Artery Scan Pulse Rate 130 H 117 H 120 H Pulse Rate [Apical] Pulse Rate from SpO2 Sensor 116 H 119 H Respiratory Rate 18 17 16 Respiratory Effort / Characteristics Non-Labored Respiratory Depth Normal Blood Pressure 139/81 Blood Pressure [Right Arm] Blood Pressure Mean 100 Blood Pressure Mean [Right Arm] Pulse Oximetry 98 97 99 Oxygen Delivery Method Room Air Sepsis Recent Fever Within 48 Hours No Sepsis New/Unexplained Change in Mental Status No Sepsis Action Taken by Nursing No Action Required 11/13/21 12:01 11/13/21 12:10 11/13/21 12:20 Temperature Temperature Source Pulse Rate 112 H 104 H 100 H Pulse Rate [Apical] Pulse Rate from SpO2 Sensor 112 H 102 H 101 H Respiratory Rate 18 15 21 Respiratory Effort / Characteristics Respiratory Depth Blood Pressure 157/103 H Blood Pressure [Right Arm] Blood Pressure Mean 121 Blood Pressure Mean [Right Arm] Pulse Oximetry 99 100 100 Oxygen Delivery Method Sepsis Recent Fever Within 48 Hours Sepsis New/Unexplained Change in Mental Status Sepsis Action Taken by Nursing 11/13/21 12:30 11/13/21 12:40 11/13/21 12:50 Temperature Temperature Source Pulse Rate 95 H 90 97 H Pulse Rate [Apical] Pulse Rate from SpO2 Sensor 94 H 92 H 97 H Respiratory Rate 18 17 14 Respiratory Effort / Characteristics Respiratory Depth Blood Pressure 146/107 H Blood Pressure [Right Arm] Blood Pressure Mean 120 Blood Pressure Mean [Right Arm] Pulse Oximetry 100 100 98 Oxygen Delivery Method Sepsis Recent Fever Within 48 Hours Sepsis New/Unexplained Change in Mental Status Sepsis Action Taken by Nursing 11/13/21 13:00 11/13/21 13:10 11/13/21 13:20 Temperature Temperature Source Pulse Rate 104 H 94 H 99 H Pulse Rate [Apical] Pulse Rate from SpO2 Sensor 103 H 98 H 97 H Respiratory Rate 16 17 18 Respiratory Effort / Characteristics Respiratory Depth Blood Pressure 129/89 Blood Pressure [Right Arm] Blood Pressure Mean 102 Blood Pressure Mean [Right Arm] Pulse Oximetry 98 97 96 Oxygen Delivery Method Sepsis Recent Fever Within 48 Hours Sepsis New/Unexplained Change in Mental Status Sepsis Action Taken by Nursing 11/13/21 13:30 11/13/21 13:40 11/13/21 13:46 Temperature Temperature Source Pulse Rate 105 H 107 H 92 H Pulse Rate [Apical] Pulse Rate from SpO2 Sensor 102 H 102 H 91 H Respiratory Rate 21 25 H 19 Respiratory Effort / Characteristics Respiratory Depth Blood Pressure 130/83 142/97 H Blood Pressure [Right Arm] Blood Pressure Mean 98 112 Blood Pressure Mean [Right Arm] Pulse Oximetry 97 98 95 Oxygen Delivery Method Sepsis Recent Fever Within 48 Hours Sepsis New/Unexplained Change in Mental Status Sepsis Action Taken by Nursing 11/13/21 13:50 11/13/21 14:00 11/13/21 14:58 Temperature Temperature Source Pulse Rate 93 H 89 Pulse Rate [Apical] 86 Pulse Rate from SpO2 Sensor 94 H 89 Respiratory Rate 17 21 21 Respiratory Effort / Characteristics Respiratory Depth Blood Pressure 140/81 Blood Pressure [Right Arm] 124/94 Blood Pressure Mean 100 Blood Pressure Mean [Right Arm] 104 Pulse Oximetry 98 98 98 Oxygen Delivery Method Room Air Sepsis Recent Fever Within 48 Hours Sepsis New/Unexplained Change in Mental Status Sepsis Action Taken by Nursing Laboratory Data Result diagrams: 11/13/21 12:04 11/13/21 12:04 Lab Results 11/13/21 11/13/21 11/13/21 Range/Units 12:04 12:04 12:04 WBC 11.47 H (4.8-10.8) K/uL RBC 4.31 (4.2-5.4) M/uL Hgb 13.7 (12.0-16.0) g/dL Hct 42.6 (37-47) % MCV 98.8 (80-100) fL MCH 31.8 (25-34) pg MCHC 32.2 (32-36) g/dL RDW Std Deviation 56.4 H (36.4-46.3) fL RDW Coeff of Etienne 15.5 H (11.5-14.5) % Plt Count 802 H (130-400) K/uL MPV 8.9 (7.4-10.4) fL Neutrophils % (Manual) 68.3 % Lymphocytes % (Manual) 25.2 % Monocytes % (Manual) 2.6 % Eosinophils % (Manual) 1.7 % Basophils % (Manual) 0.9 % Myelocytes % (Man) 1.3 % Neutrophils # (Manual) 7.83 H (1.4-6.5) K/uL Total Absolute Neuts 7.83 H (1.4-6.5) K/uL Lymphocytes # (Manual) 2.89 (1.2-3.4) K/uL Total Abs Lymphocytes 2.89 (1.2-3.4) K/uL Monocytes # (Manual) 0.30 (0.11-0.59) K/uL Eosinophils # (Manual) 0.19 (0-0.5) K/uL Basophils # (Manual) 0.10 (0-0.2) K/uL Myelocytes # (Manual) 0.15 H (0-0) K/uL RBC Morphology Unremarkable Sodium 139 (136-145) mmol/L Potassium 4.2 (3.5-5.1) mmol/L Chloride 103 (98-107) mmol/L Carbon Dioxide 27 (21-32) mmol/L Anion Gap 9 (3-11) BUN 19 (6-23) mg/dl Creatinine 0.85 (0.6-1.2) mg/dl Est Cr Clr Drug Dosing 62.5 ml/min Est GFR ( Amer) 85.7 ml/min Est GFR (Non-Af Amer) 74.0 ml/min BUN/Creatinine Ratio 22.4 H (10-20) Glucose 115 H (70-99(Fasting)) mg/dl Lactate 1.2 (0.4-2.0) mmol/L Calcium 10.8 H (8.5-10.1) mg/dl Phosphorus (2.5-4.9) mg/dl Magnesium (1.7-2.4) mg/dl Total Bilirubin 0.4 (0.2-1.0) mg/dl AST 17 (13-39) U/L ALT 41 (7-52) U/L Alkaline Phosphatase 102 (34-104) U/L Troponin I High Sens 6.0 D (0-14) pg/ml Total Protein 8.2 (6.0-8.3) gm/dl Albumin 4.3 (3.4-5.0) gm/dl Globulin 3.9 (2.5-4.0) gm/dl Albumin/Globulin Ratio 1.1 (0.9-2) Lipase 19 (11-82) U/L Procalcitonin (0-0.5) ng/ml Urine Color Urine Appearance (Clear) Urine pH (4.5-7.5) Ur Specific [place] (1.000-1.030) Urine Protein (Negative) Urine Glucose (UA) (Negative) Urine Ketones (Negative) Urine Blood (Negative) Urine Nitrite (Negative) Urine Bilirubin (Negative) Urine Urobilinogen (Negative) Ur Leukocyte Esterase (Negative) Urine WBC (Auto) (0-5) /hpf Urine RBC (Auto) (0-4) /hpf U Hyaline Cast (Auto) (0-5) /lpf U Epithel Cells (Auto) (0-5) /lpf Urine Bacteria (Auto) (Negative) Anaplasma Smear See Comment Lyme Disease IgG Ab (Negative) Lyme Disease IgM Ab (Negative) SARS-CoV-2, RNA, NAAT (NEGATIVE) 11/13/21 11/13/21 11/13/21 Range/Units 12:04 12:04 12:12 WBC (4.8-10.8) K/uL RBC (4.2-5.4) M/uL Hgb (12.0-16.0) g/dL Hct (37-47) % MCV (80-100) fL MCH (25-34) pg MCHC (32-36) g/dL RDW Std Deviation (36.4-46.3) fL RDW Coeff of Etienne (11.5-14.5) % Plt Count (130-400) K/uL MPV (7.4-10.4) fL Neutrophils % (Manual) % Lymphocytes % (Manual) % Monocytes % (Manual) % Eosinophils % (Manual) % Basophils % (Manual) % Myelocytes % (Man) % Neutrophils # (Manual) (1.4-6.5) K/uL Total Absolute Neuts (1.4-6.5) K/uL Lymphocytes # (Manual) (1.2-3.4) K/uL Total Abs Lymphocytes (1.2-3.4) K/uL Monocytes # (Manual) (0.11-0.59) K/uL Eosinophils # (Manual) (0-0.5) K/uL Basophils # (Manual) (0-0.2) K/uL Myelocytes # (Manual) (0-0) K/uL RBC Morphology Sodium (136-145) mmol/L Potassium (3.5-5.1) mmol/L Chloride (98-107) mmol/L Carbon Dioxide (21-32) mmol/L Anion Gap (3-11) BUN (6-23) mg/dl Creatinine (0.6-1.2) mg/dl Est Cr Clr Drug Dosing ml/min Est GFR ( Amer) ml/min Est GFR (Non-Af Amer) ml/min BUN/Creatinine Ratio (10-20) Glucose (70-99(Fasting)) mg/dl Lactate (0.4-2.0) mmol/L Calcium (8.5-10.1) mg/dl Phosphorus 3.8 (2.5-4.9) mg/dl Magnesium 1.7 (1.7-2.4) mg/dl Total Bilirubin (0.2-1.0) mg/dl AST (13-39) U/L ALT (7-52) U/L Alkaline Phosphatase (34-104) U/L Troponin I High Sens (0-14) pg/ml Total Protein (6.0-8.3) gm/dl Albumin (3.4-5.0) gm/dl Globulin (2.5-4.0) gm/dl Albumin/Globulin Ratio (0.9-2) Lipase (11-82) U/L Procalcitonin < 0.05 (0-0.5) ng/ml Urine Color Urine Appearance (Clear) Urine pH (4.5-7.5) Ur Specific [place] (1.000-1.030) Urine Protein (Negative) Urine Glucose (UA) (Negative) Urine Ketones (Negative) Urine Blood (Negative) Urine Nitrite (Negative) Urine Bilirubin (Negative) Urine Urobilinogen (Negative) Ur Leukocyte Esterase (Negative) Urine WBC (Auto) (0-5) /hpf Urine RBC (Auto) (0-4) /hpf U Hyaline Cast (Auto) (0-5) /lpf U Epithel Cells (Auto) (0-5) /lpf Urine Bacteria (Auto) (Negative) Anaplasma Smear Lyme Disease IgG Ab Negative (Negative) Lyme Disease IgM Ab Negative (Negative) SARS-CoV-2, RNA, NAAT NEGATIVE (NEGATIVE) 11/13/21 Range/Units 13:57 WBC (4.8-10.8) K/uL RBC (4.2-5.4) M/uL Hgb (12.0-16.0) g/dL Hct (37-47) % MCV (80-100) fL MCH (25-34) pg MCHC (32-36) g/dL RDW Std Deviation (36.4-46.3) fL RDW Coeff of Etienne (11.5-14.5) % Plt Count (130-400) K/uL MPV (7.4-10.4) fL Neutrophils % (Manual) % Lymphocytes % (Manual) % Monocytes % (Manual) % Eosinophils % (Manual) % Basophils % (Manual) % Myelocytes % (Man) % Neutrophils # (Manual) (1.4-6.5) K/uL Total Absolute Neuts (1.4-6.5) K/uL Lymphocytes # (Manual) (1.2-3.4) K/uL Total Abs Lymphocytes (1.2-3.4) K/uL Monocytes # (Manual) (0.11-0.59) K/uL Eosinophils # (Manual) (0-0.5) K/uL Basophils # (Manual) (0-0.2) K/uL Myelocytes # (Manual) (0-0) K/uL RBC Morphology Sodium (136-145) mmol/L Potassium (3.5-5.1) mmol/L Chloride (98-107) mmol/L Carbon Dioxide (21-32) mmol/L Anion Gap (3-11) BUN (6-23) mg/dl Creatinine (0.6-1.2) mg/dl Est Cr Clr Drug Dosing ml/min Est GFR ( Amer) ml/min Est GFR (Non-Af Amer) ml/min BUN/Creatinine Ratio (10-20) Glucose (70-99(Fasting)) mg/dl Lactate (0.4-2.0) mmol/L Calcium (8.5-10.1) mg/dl Phosphorus (2.5-4.9) mg/dl Magnesium (1.7-2.4) mg/dl Total Bilirubin (0.2-1.0) mg/dl AST (13-39) U/L ALT (7-52) U/L Alkaline Phosphatase (34-104) U/L Troponin I High Sens (0-14) pg/ml Total Protein (6.0-8.3) gm/dl Albumin (3.4-5.0) gm/dl Globulin (2.5-4.0) gm/dl Albumin/Globulin Ratio (0.9-2) Lipase (11-82) U/L Procalcitonin (0-0.5) ng/ml Urine Color Yellow Urine Appearance Clear (Clear) Urine pH 6.5 (4.5-7.5) Ur Specific [place] 1.007 (1.000-1.030) Urine Protein Negative (Negative) Urine Glucose (UA) Negative (Negative) Urine Ketones Negative (Negative) Urine Blood 1+ H (Negative) Urine Nitrite Negative (Negative) Urine Bilirubin Negative (Negative) Urine Urobilinogen Negative (Negative) Ur Leukocyte Esterase Negative (Negative) Urine WBC (Auto) 1-5 (0-5) /hpf Urine RBC (Auto) 0-4 (0-4) /hpf U Hyaline Cast (Auto) 0 (0-5) /lpf U Epithel Cells (Auto) 10-20 H (0-5) /lpf Urine Bacteria (Auto) Negative (Negative) Anaplasma Smear Lyme Disease IgG Ab (Negative) Lyme Disease IgM Ab (Negative) SARS-CoV-2, RNA, NAAT (NEGATIVE) Administered Medications Discontinued Medications Hydrocodone Bitart/Acetaminophen (Hydrocodone/Acetamophen 5/325mg Tab) 1 tab PO ONE ONE Stop: 11/13/21 17:52 Last Admin: 11/13/21 18:11 Dose: 1 tab Documented by: [id number] Fentanyl Citrate (Fentanyl Citrate 100 Mcg/2 Ml Vial) 50 mcg IV NOW STA Stop: 11/13/21 11:57 Last Admin: 11/13/21 12:14 Dose: 50 mcg Documented by: [id number] Sodium Chloride (Nss 1000ml) 1,000 mls @ 999 mls/hr IV .Q1H1M STA Stop: 11/13/21 12:46 Last Infusion: 11/13/21 14:00 Dose: 0 mls/hr Documented by: [id number] Admin: 11/13/21 12:14 Dose: 999 mls/hr Documented by: [id number] Lactated Ringer's (Lr) 1,000 mls @ 999 mls/hr IV .Q1H1M ONE Stop: 11/13/21 13:57 Last Infusion: 11/13/21 15:35 Dose: 0 mls/hr Documented by: [id number] Admin: 11/13/21 14:00 Dose: 999 mls/hr Documented by: [id number] Cefepime HCl (Maxipime) 2,000 mg in 20 mls @ 5 mls/min IV NOW STA; Protocol Stop: 11/13/21 15:13 Last Admin: 11/13/21 15:15 Dose: 5 mls/min Documented by: [id number] Ioversol (Optiray 320 125ml) 120 ml IV ONCE ONE Stop: 11/13/21 14:26 Last Admin: 11/13/21 14:28 Dose: 120 ml Documented by: [id number] Imaging Data Radiologist's Impression: Chest X-Ray 11/13/21 11:46 XR chest 1V portable CLINICAL HISTORY: tachy, weak TECHNIQUE: Single frontal radiograph of the chest was obtained. Comparison: Comparison is made to chest radiograph 11/01/2021 FINDINGS: No lines and tubes are seen. The cardiomediastinal silhouette is normal. The lungs are clear. No evidence of pleural effusion or pneumothorax. Scoliosis is noted in the spine. IMPRESSION: No acute chest disease. ACT 112: Negative or not required by law. Electronically signed by: Dawit Woo M.D. 11/13/2021 12:25 PM Chest CTA 11/13/21 11:56 CT ANGIOGRAM OF THE CHEST; CT SCAN OF THE ABDOMEN AND PELVIS WITH IV CONTRAST CLINICAL HISTORY: Dyspnea. Tachycardia. Generalized weakness. Left flank pain. COMPARISON STUDY: Chest x-ray dated 11/13/2021. Abdominal CT dated 11/05/2021. TECHNIQUE: Following the IV administration of 120 of Optiray 320, CT angiogram of the chest is performed from the upper abdomen to the thoracic inlet utilizing the pulmonary embolus protocol. Images are reviewed in the axial, sagittal, coronal planes. 3-D MIPS images are created and assessed. Subsequently, CT scan of the abdomen and pelvis was performed from the lung bases to the proximal femora. Images are reviewed in the axial, sagittal, and coronal planes. IV contrast was administered without complication. A dose lowering technique was utilized adhering to the principles of ALARA. CT DOSE: 705.72 mGycm FINDINGS: CHEST: Thyroid: Normal in size and heterogeneous in attenuation. A coarse calcification is seen in the right lobe. Thoracic aorta: There is mild atherosclerotic calcification of the thoracic aorta. There is mild ectasia of the ascending thoracic aorta which measures up to 3.7 cm in diameter. The remainder of the thoracic aorta is normal in caliber and the arch demonstrates bovine variant anatomy. No dissection is seen. Pulmonary vasculature: The pulmonary trunk is normal in caliber. There are no filling defects identified in the main, lobar, or segmental pulmonary arteries to indicate pulmonary embolus. Heart: The heart is normal in size and without pericardial effusion. The coronary arteries are densely calcified. Lungs and pleural spaces: There is moderate emphysema. No airspace consolidation or pleural effusion is identified. The trachea and central airways are clear. Scarring/atelectasis is noted at the lung bases. Diffuse peribronchial thickening is noted. Mediastinum: There is no mediastinal lymphadenopathy. Mari: Clear. Axillae: There is no axillary lymphadenopathy. Bony thorax: The skeletal structures are osteopenic. There is thoracolumbar scoliosis. No lytic or blastic lesions are identified. ABDOMEN AND PELVIS: Liver: The contrast-enhanced liver is normal in size, contour, and attenuation. There is no intrahepatic or ductal dilatation. The hepatic veins and portal veins are patent. Gallbladder: Unremarkable. Spleen: Normal in size and attenuation. Pancreas: Unremarkable. Adrenal glands: Unremarkable. Kidneys: The contrast enhanced kidneys are normal in size. There is mild left- sided hydronephrosis and a large left external pelvis. Mild urothelial thickening and enhancement is suggested involving the left pelvis. Foci of parenchymal scarring are seen throughout the left kidney. Enhancement of the left kidney is slightly heterogeneous. Abdominal vasculature: The abdominal aorta is normal in course and caliber noting advanced atherosclerotic calcification. Bowel: There is moderate colonic diverticulosis without CT evidence of acute diverticulitis. Fecal retention is seen throughout the colon. No bowel obstruction is identified. The appendix is not visualized. Peritoneum: There is no intraperitoneal free air or abdominal ascites. There is a fat-containing umbilical hernia. Lymphadenopathy: None. Pelvic viscera: The bladder is mildly distended but otherwise normal in appearance. The uterus is surgically absent. No adnexal lesion is seen. Skeletal structures: The skeletal structures are osteopenic. No lytic or blastic lesions are seen. IMPRESSION: 1. There is no evidence of pulmonary embolus in the main, lobar, or segmental pulmonary arteries. 2. Emphysema. 3. There is no airspace consolidation or pleural effusion. 4. Diffuse peribronchial thickening suggests bronchitis/reactive airway disease. Clinical correlation will be required. 5. Foci of parenchymal scarring are seen throughout the left kidney, there is mild urothelial thickening and enhancement in the left renal pelvis, and there is slightly heterogeneous enhancement left kidney. Correlate clinically and with urinalysis for evidence of left-sided pyelonephritis. 6. There is mild left-sided hydronephrosis. The left ureter is normal in caliber with no obstructing lesion identified. 7. Colonic diverticulosis without CT evidence of acute diverticulitis. 8. Advanced coronary artery calcification. 9. Additional findings as above. ACT 112: Negative or not required by law. Electronically signed by: Suman Gutierrez M.D. 11/13/2021 2:54 PM Abdomen/Pelvis CT 11/13/21 11:57 CT ANGIOGRAM OF THE CHEST; CT SCAN OF THE ABDOMEN AND PELVIS WITH IV CONTRAST CLINICAL HISTORY: Dyspnea. Tachycardia. Generalized weakness. Left flank pain. COMPARISON STUDY: Chest x-ray dated 11/13/2021. Abdominal CT dated 11/05/2021. TECHNIQUE: Following the IV administration of 120 of Optiray 320, CT angiogram of the chest is performed from the upper abdomen to the thoracic inlet utilizing the pulmonary embolus protocol. Images are reviewed in the axial, sagittal, coronal planes. 3-D MIPS images are created and assessed. Subsequently, CT scan of the abdomen and pelvis was performed from the lung bases to the proximal fem ora. Images are reviewed in the axial, sagittal, and coronal planes. IV contrast was administered without complication. A dose lowering technique was utilized adhering to the principles of ALARA. CT DOSE: 705.72 mGycm FINDINGS: CHEST: Thyroid: Normal in size and heterogeneous in attenuation. A coarse calcification is seen in the right lobe. Thoracic aorta: There is mild atherosclerotic calcification of the thoracic aorta. There is mild ectasia of the ascending thoracic aorta which measures up to 3.7 cm in diameter. The remainder of the thoracic aorta is normal in caliber and the arch demonstrates bovine variant anatomy. No dissection is seen. Pulmonary vasculature: The pulmonary trunk is normal in caliber. There are no filling defects identified in the main, lobar, or segmental pulmonary arteries to indicate pulmonary embolus. Heart: The heart is normal in size and without pericardial effusion. The l[place] arteries are densely calcified. Lungs and pleural spaces: There is moderate emphysema. No airspace consolidation or pleural effusion is identified. The trachea and central airways are clear. Scarring/atelectasis is noted at the lung bases. Diffuse peribronchial thickenin g is noted. Mediastinum: There is no mediastinal lymphadenopathy. Mari: Clear. Axillae: There is no axillary lymphadenopathy. Bony thorax: The skeletal structures are osteopenic. There is thoracolumbar scoliosis. No lytic or blastic lesions are identified. ABDOMEN AND PELVIS: Liver: The contrast-enhanced liver is normal in size, contour, and attenuation. There is no intrahepatic or ductal dilatation. The hepatic veins and portal veins are patent. Gallbladder: Unremarkable. Spleen: Normal in size and attenuation. Pancreas: Unremarkable. Adrenal glands: Unremarkable. Kidneys: The contrast enhanced kidneys are normal in size. There is mild left- sided hydronephrosis and a large left external pelvis. Mild urothelial thickening and enhancement is suggested involving the left pelvis. Foci of pare nchymal scarring are seen throughout the left kidney. Enhancement of the left kidney is slightly heterogeneous. Abdominal vasculature: The abdominal aorta is normal in course and caliber noting advanced atherosclerotic calcification. Bowel: There is moderate colonic diverticulosis without CT evidence of acute diverticulitis. Fecal retention is seen throughout the colon. No bowel obstruction is identified. The appendix is not visualized. Peritoneum: There is no intraperitoneal free air or abdominal ascites. There is a fat-containing umbilical hernia. Lymphadenopathy: None. Pelvic viscera: The bladder is mildly distended but otherwise normal in appearance. The uterus is surgically absent. No adnexal lesion is seen. Skeletal structures: The skeletal structures are osteopenic. No lytic or blastic lesions are seen. IMPRESSION: 1. There is no evidence of pulmonary embolus in the main, lobar, or segmental pulmonary arteries. 2. Emphysema. 3. There is no airspace consolidation or pleural effusion. 4. Diffuse peribronchial thickening suggests bronchitis/reactive airway disease. Clinical correlation will be required. 5. Foci of parenchymal scarring are seen throughout the left kidney, there is mild urothelial thickening and enhancement in the left renal pelvis, and there is slightly heterogeneous enhancement left kidney. Correlate clinically and with urinalysis for evidence of left-sided pyelonephritis. 6. There is mild left-sided hydronephrosis. The left ureter is normal in caliber with no obstructing lesion identified. 7. Colonic diverticulosis without CT evidence of acute diverticulitis. 8. Advanced coronary artery calcification. 9. Additional findings as above. ACT 112: Negative or not required by law. Electronically signed by: Suman Gutierrez M.D. 11/13/2021 2:54 PM Discharge Plan Visit Data Chief Complaint: Weakness Stated Complaint: REF BY , SEPSIS, WEAKNESS, PAIN IN BLADDER ED Provider: Alvino Simeon Discharge Problem: Weakness, Sinus tachycardia, Left flank pain, Pyelonephritis Patient Disposition: Admitted As Inpatient Discharge Instructions Interventions: ED Discharge Assessment Last Done: 11/13/21 17:47
--- NOTE | 2021-11-13 12:26 | XRay Report ---
XR chest 1V portable CLINICAL HISTORY: tachy, weak TECHNIQUE: Single frontal radiograph of the chest was obtained. Comparison: Comparison is made to chest radiograph 11/01/2021 FINDINGS: No lines and tubes are seen. The cardiomediastinal silhouette is normal. The lungs are clear. No evid ence of pleural effusion or pneumothorax. Scoliosis is noted in the spine. IMPRESSION: No acute chest disease. ACT 112: Negative or not required by law. Electronically signed by: Dawit Woo M.D. 11/13/2021 12:25 PM
[2021-11-13 12:35] LABS: Hematocrit (blood only) 42.6 % (37-47); Hemoglobin 13.7 g/dL (12.0-16.0); Mean Corpuscular Hemoglobin 31.8 pg (25-34); Mean Corpuscular Hgb Conc 32.2 g/dL (32-36); Mean Corpuscular Volume 98.8 fL (80-100); Mean Platelet Volume 8.9 fL (7.4-10.4); Platelet Count 802 K/uL (130-400); RDW Coefficient of Variation 15.5 % (11.5-14.5); RDW Standard Deviation 56.4 fL (36.4-46.3); Red Blood Count 4.31 M/uL (4.2-5.4); White Blood Count 11.47 K/uL (4.8-10.8)
[2021-11-13 12:55] LABS: Albumin Globulin Ratio 1.1 (0.9-2); Albumin Level 4.3 gm/dl (3.4-5.0); BUN Creatinine Ratio 22.4 (10-20); Bilirubin,Total 0.4 mg/dl (0.2-1.0); Calcium 10.8 mg/dl (8.5-10.1); Creatinine Clr Calc Pharmacy 62.5 ml/min; Est GFR (African American) 85.7 ml/min; Globulin 3.9 gm/dl (2.5-4.0); Potassium 4.2 mmol/L (3.5-5.1); Total Protein 8.2 gm/dl (6.0-8.3)
[2021-11-13] MEDS ORDERED: LACTATED RINGER'S 1,000 ML IV ONE (12:57)
--- NOTE | 2021-11-13 13:07 | Electrocardiogram Report ---
Test Reason : Blood Pressure : / mmHG Vent. Rate : 101 BPM Atrial Rate : 101 BPM P-R Int : 176 ms QRS Dur : 084 ms QT Int : 352 ms P-R-T Axes : 074 073 066 degrees QTc Int : 456 ms Sinus tachycardia Biatrial enlargement Poor R wave progression, consider anterior AR vs. lead placement vs. LVH Abnormal ECG When compared with ECG of 06-NOV-2021 14:33, Vent. rate has increased BY 35 BPM Confirmed by Chau Morfin ([id number]) on 11/13/2021 1:07:13 PM Referred By: Segundo Lindsay Confirmed By:Chau Morfin
[2021-11-13 13:09] LABS: ALC (manual) 2.89 K/uL (1.2-3.4); ANC (manual) 7.83 K/uL (1.4-6.5); Basophils % (manual) 0.9 %; Eosinophils # (manual) 0.19 K/uL (0-0.5); Eosinophils % (manual) 1.7 %; Lymphocytes # (manual) 2.89 K/uL (1.2-3.4); Lymphocytes % (manual) 25.2 %; Monocytes % (manual) 2.6 %; Myelocytes # (manual) 0.15 K/uL (0-0); Myelocytes % (manual) 1.3 %; Neutrophils # (manual) 7.83 K/uL (1.4-6.5); Neutrophils % (manual) 68.3 %
[2021-11-13 13:37] LABS: Procalcitonin < 0.05 ng/ml (0-0.5)
[2021-11-13 13:45] LABS: Lyme Ab IgG w/WB Rflx Negative (Negative); Lyme Ab IgM w/WB Rflx Negative (Negative)
[2021-11-13 14:08] LABS: RBC Morphology Unremarkable
[2021-11-13 14:18] LABS: Appearance Urine Clear (Clear); Bacteria Urine Automated Negative (Negative); Bilirubin Urine Negative (Negative); Blood Urine 1+ (Negative); Cast Urine Automated 0 /lpf (0-5); Color Urine Yellow; Glucose Urine UA Negative (Negative); Ketones Urine Negative (Negative); Leukocyte Esterase Urine Negative (Negative); Nitrite Urine Negative (Negative); Protein Urine Negative (Negative); RBC Urine Automated 0-4 /hpf (0-4); Specific Gravity Urine 1.007 (1.000-1.030); Urobilinogen Urine Negative (Negative); pH Urine 6.5 (4.5-7.5)
[2021-11-13] MEDS ORDERED: OPTIRAY 320 125ml IV ONE (14:25)
--- NOTE | 2021-11-13 14:55 | CT Scan Report ---
CT ANGIOGRAM OF THE CHEST; CT SCAN OF THE ABDOMEN AND PELVIS WITH IV CONTRAST CLINICAL HISTORY: Dyspnea. Tachycardia. Generalized weakness. Left flank pain. COMPARISON STUDY: Chest x-ray dated 11/13/2021. Abdominal CT dated 11/05/2021. TECHNIQUE: Following the IV administration of 120 of Optiray 320, CT angiogram of the chest is perfor med from the upper abdomen to the thoracic inlet utilizing the pulmonary embolus protocol. Images are reviewed in the axial, sagittal, coronal planes. 3-D MIPS images are created and assessed. Subsequen tly, CT scan of the abdomen and pelvis was performed from the lung bases to the proximal femora. Imag es are reviewed in the axial, sagittal, and coronal planes. IV contrast was administered without comp lication. A dose lowering technique was utilized adhering to the principles of ALARA. CT DOSE: 705.72 mGycm FINDINGS: CHEST: Thyroid: Normal in size and heterogeneous in attenuation. A coarse calcification is seen in the right lobe. Thoracic aorta: There is mild atherosclerotic calcification of the thoracic aorta. There is mild ecta juma of the ascending thoracic aorta which measures up to 3.7 cm in diameter. The remainder of the tho racic aorta is normal in caliber and the arch demonstrates bovine variant anatomy. No dissection is s een. Pulmonary vasculature: The pulmonary trunk is normal in caliber. There are no filling defects identif ied in the main, lobar, or segmental pulmonary arteries to indicate pulmonary embolus. Heart: The heart is normal in size and without pericardial effusion. The coronary arteries are densel y calcified. Lungs and pleural spaces: There is moderate emphysema. No airspace consolidation or pleural effusion is identified. The trachea and central airways are clear. Scarring/atelectasis is noted at the lung b ases. Diffuse peribronchial thickening is noted. Mediastinum: There is no mediastinal lymphadenopathy. Mari: Clear. Axillae: There is no axillary lymphadenopathy. Bony thorax: The skeletal structures are osteopenic. There is thoracolumbar scoliosis. No lytic or bl astic lesions are identified. ABDOMEN AND PELVIS: Liver: The contrast-enhanced liver is normal in size, contour, and attenuation. There is no intrahepa tic or ductal dilatation. The hepatic veins and portal veins are patent. Gallbladder: Unremarkable. Spleen: Normal in size and attenuation. Pancreas: Unremarkable. Adrenal glands: Unremarkable. Kidneys: The contrast enhanced kidneys are normal in size. There is mild left-sided hydronephrosis an d a large left external pelvis. Mild urothelial thickening and enhancement is suggested involving the left pelvis. Foci of parenchymal scarring are seen throughout the left kidney. Enhancement of the le ft kidney is slightly heterogeneous. Abdominal vasculature: The abdominal aorta is normal in course and caliber noting advanced atheroscle rotic calcification. Bowel: There is moderate colonic diverticulosis without CT evidence of acute diverticulitis. Fecal re tention is seen throughout the colon. No bowel obstruction is identified. The appendix is not visual ized. Peritoneum: There is no intraperitoneal free air or abdominal ascites. There is a fat-containing umbi lical hernia. Lymphadenopathy: None. Pelvic viscera: The bladder is mildly distended but otherwise normal in appearance. The uterus is sarah gically absent. No adnexal lesion is seen. Skeletal structures: The skeletal structures are osteopenic. No lytic or blastic lesions are seen. IMPRESSION: 1. There is no evidence of pulmonary embolus in the main, lobar, or segmental pulmonary arteries. 2. Emphysema. 3. There is no airspace consolidation or pleural effusion. 4. Diffuse peribronchial thickening suggests bronchitis/reactive airway disease. Clinical correlation will be required. 5. Foci of parenchymal scarring are seen throughout the left kidney, there is mild urothelial thicken ing and enhancement in the left renal pelvis, and there is slightly heterogeneous enhancement left ki dney. Correlate clinically and with urinalysis for evidence of left-sided pyelonephritis. 6. There is mild left-sided hydronephrosis. The left ureter is normal in caliber with no obstructing lesion identified. 7. Colonic diverticulosis without CT evidence of acute diverticulitis. 8. Advanced coronary artery calcification. 9. Additional findings as above. ACT 112: Negative or not required by law. Electronically signed by: Suman Gutierrez M.D. 11/13/2021 2:54 PM
[2021-11-13] MEDS ORDERED: CEFEPIME 2,000 MG/20 ML VIAL IV STA (15:10)
--- NOTE | 2021-11-13 16:03 | History & Physical Report ---
Date of Service November 13, 2021 Assessment & Plan (1) Generalized weakness: (2) Left flank pain: Plan: This is a 61yo F with a PMH of hypothyroidism, insomnia, tobacco use disorder who presents from PCP's office with left flank pain, generalized weakness and tachycardia. Recently admitted to our service from 11/01-11/06 for E coli bacteremia 2/2 UTI. Blood culture from 11/01 growing e coli sensitive to cipro, which she was discharged home on. Blood cx 11/[address] abd/pelvis with mild urothelial thickening and enhancement in the left renal pelvis, and there is slightly heterogeneous enhancement left kidney. Correlate clinically and with urinalysis for evidence of left-sided pyelonephritis WBC 11.4k, lactate and procal WNL. UA unremarkable Given recent bacteremia 2/2 UTI, will continue abx coverage with Cefepime. Follow blood cultures Strain urine for stone Analgesics PRN, IV fluids, PT/OT evaluation (3) Diarrhea: Plan: Developed watery diarrhea in past few days, in setting of abx use Potassium WNL, phos and mag pending C diff pending (4) Hypothyroidism: Plan: Continue levothyroxine (5) Tobacco use: Plan: Cessation recommended. Not interested in nicotine patch DVT Ppx: SQ lovenox Code status: FULL PCP: Angélica Dispo: Admitted to med/surg Patient seen in collaboration with Dr. Romero. Please see addendum. History of Present Illness Chief Complaint: flank pain, weakness, tachycardia Primary Care Provider: Segundo Lindsay MD This is a 61yo F with a PMH of hypothyroidism, insomnia, tobacco use disorder who presents from PCP's office with left flank pain, generalized weakness and tachycardia. Was recently admitted to our service from 11/01-11/06 for E coli bacteremia 2/2 UTI. Blood culture from 11/01 growing e coli sensitive to cipro, which she was discharged home on. Over the past week, patient endorses L flank and lower pain described as constant, deep pain that radiates down groin when she urinates. Pain became worse 2 days ago with associated weakness and feeling of heart racing. No alleviating factors. Diarrhea started yesterday and is water y, no blood visualized. No fever, chills, headache, chest pain, SOB, nausea, vomiting or constipation. Continues to feel exhausted. Dysuria has resolved since prior admission. Allergies Allergy/AdvReac Type Severity Reaction Status Date / Time penicillin G Allergy Unknown HIVES/ Unverified 11/13/21 15:47 SWELLING Home Medications Medication Instructions Recorded Confirmed Type carisoprodol 350 mg tablet 350 mg PO TID PRN 11/01/21 11/13/21 History hydrocodone 10 mg-acetaminophen 1 tab PO Q6 PRN 11/01/21 11/13/21 History 325 mg tablet ibuprofen 200 mg tablet (Advil) 400 mg PO Q6H PRN 11/01/21 11/13/21 History ondansetron HCl 8 mg tablet 8 mg PO Q8 PRN 11/01/21 11/13/21 History sumatriptan succinate 100 mg tablet 100 mg PO DIRECTED 11/01/21 11/13/21 History zolmitriptan 5 mg tablet 5 mg PO DIRECTED 11/01/21 11/13/21 History amlodipine 5 mg tablet (Norvasc) 5 mg PO QAM 30 Days #30 tab 11/06/21 11/13/21 Rx levothyroxine 150 mcg tablet 150 mcg PO DAILY 11/13/21 11/13/21 History Past Med/Surg History Medical History Benign tumor of abdominal wall Hypothyroidism Insomnia Migraine Mood disorder Osteoporosis Tobacco use Surgical History (Updated 11/13/21 @ 16:18 by Denisha Lockhart PA-C) History of partial hysterectomy Hx of appendectomy Hx of tonsillectomy Previous section Family History Father Cancer Heart disease Mother Uterine cancer Aunt Breast cancer Social History Smoking Status: Current every day smoker Cigarettes Per Day: 1/2 PPD; Second Hand Exposure: No; Hx Alcohol Use: No Hx Substance Use: No Preferred Language: Luxembourgish Communication Ability: Effective Manufacturing Test Engineer Required: No Beliefs That Will Affect Care: None Current Living Situation: Spouse Feels Safe at Home: Yes Assistive Devices: None Review of Systems Review of Systems: At least ten systems reviewed and negative except as noted in the HPI. Physical Exam Physical Exam: Please see Dr. Romero's addendum for physical exam. Results & Data Results & Data ([facility]) Vital Signs (Past 12 Hours) Vital Signs Temp Pulse Pulse Resp BP BP Pulse Ox 11/13/21 14:58 86 21 124/94 98 11/13/21 14:00 89 21 140/81 98 11/13/21 13:50 93 H 17 98 11/13/21 13:46 92 H 19 142/97 H 95 11/13/21 13:40 107 H 25 H 98 11/13/21 13:30 105 H 21 130/83 97 11/13/21 13:20 99 H 18 96 11/13/21 13:10 94 H 17 97 11/13/21 13:00 104 H 16 129/89 98 11/13/21 12:50 97 H 14 98 11/13/21 12:40 90 17 100 11/13/21 12:30 95 H 18 146/107 H 100 11/13/21 12:20 100 H 21 100 11/13/21 12:10 104 H 15 100 11/13/21 12:01 112 H 18 157/103 H 99 11/13/21 12:00 120 H 16 99 11/13/21 11:55 117 H 17 97 11/13/21 11:42 36.5 C 130 H 18 139/81 98 Laboratory Results Short CBC 11/13/21 Range/Units 12:04 WBC 11.47 H (4.8-10.8) K/uL Hgb 13.7 (12.0-16.0) g/dL Hct 42.6 (37-47) % Plt Count 802 H (130-400) K/uL BMP 11/13/21 12:04 Sodium 139 Potassium 4.2 Chloride 103 Carbon Dioxide 27 BUN 19 Creatinine 0.85 Glucose 115 H Calcium 10.8 H Liver Function 11/13/21 Range/Units 12:04 Total Bilirubin 0.4 (0.2-1.0) mg/dl AST 17 (13-39) U/L ALT 41 (7-52) U/L Alkaline Phosphatase 102 (34-104) U/L Albumin 4.3 (3.4-5.0) gm/dl Urine 11/13/21 Range/Units 13:57 Urine Color Yellow Urine Appearance Clear (Clear) Urine pH 6.5 (4.5-7.5) Ur Specific Sundance 1.007 (1.000-1.030) Urine Protein Negative (Negative) Urine Glucose (UA) Negative (Negative) Diagnostic Findings Chest X-Ray 11/13/21 11:46 XR chest 1V portable CLINICAL HISTORY: tachy, weak TECHNIQUE: Single frontal radiograph of the chest was obtained. Comparison: Comparison is made to chest radiograph 11/01/2021 FINDINGS: No lines and tubes are seen. The cardiomediastinal silhouette is normal. The lungs are clear. No evidence of pleural effusion or pneumothorax. Scoliosis is noted in the spine. IMPRESSION: No acute chest disease. ACT 112: Negative or not required by law. Electronically signed by: Dawit Woo M.D. 11/13/2021 12:25 PM Chest CTA 11/13/21 11:56 CT ANGIOGRAM OF THE CHEST; CT SCAN OF THE ABDOMEN AND PELVIS WITH IV CONTRAST CLINICAL HISTORY: Dyspnea. Tachycardia. Generalized weakness. Left flank pain. COMPARISON STUDY: Chest x-ray dated 11/13/2021. Abdominal CT dated 11/05/2021. TECHNIQUE: Following the IV administration of 120 of Optiray 320, CT angiogram of the chest is performed from the upper abdomen to the thoracic inlet utilizing the pulmonary embolus protocol. Images are reviewed in the axial, sagittal, coronal planes. 3-D MIPS images are created and assessed. Subsequently, CT scan of the abdomen and pelvis was performed from the lung bases to the proximal femora. Images are reviewed in the axial, sagittal, and coronal planes. IV contrast was administered without complication. A dose lowering technique was utilized adhering to the principles of ALARA. CT DOSE: 705.72 mGycm FINDINGS: CHEST: Thyroid: Normal in size and heterogeneous in attenuation. A coarse calcification is seen in the right lobe. Thoracic aorta: There is mild atherosclerotic calcification of the thoracic aorta. There is mild ectasia of the ascending thoracic aorta which measures up to 3.7 cm in diameter. The remainder of the thoracic aorta is normal in caliber and the arch demonstrates bovine variant anatomy. No dissection is seen. Pulmonary vasculature: The pulmonary trunk is normal in caliber. There are no filling defects identified in the main, lobar, or segmental pulmonary arteries to indicate pulmonary embolus. Heart: The heart is normal in size and without pericardial effusion. The coronary arteries are densely calcified. Lungs and pleural spaces: There is moderate emphysema. No airspace consolidation or pleural effusion is identified. The trachea and central airways are clear. Scarring/atelectasis is noted at the lung bases. Diffuse peribronchial thickening is noted. Mediastinum: There is no mediastinal lymphadenopathy. Mari: Clear. Axillae: There is no axillary lymphadenopathy. Bony thorax: The skeletal structures are osteopenic. There is thoracolumbar scoliosis. No lytic or blastic lesions are identified. ABDOMEN AND PELVIS: Liver: The contrast-enhanced liver is normal in size, contour, and attenuation. There is no intrahepatic or ductal dilatation. The hepatic veins and portal veins are patent. Gallbladder: Unremarkable. Spleen: Normal in size and attenuation. Pancreas: Unremarkable. Adrenal glands: Unremarkable. Kidneys: The contrast enhanced kidneys are normal in size. There is mild left- sided hydronephrosis and a large left external pelvis. Mild urothelial thickening and enhancement is suggested involving the left pelvis. Foci of parenchymal scarring are seen throughout the left kidney. Enhancement of the left kidney is slightly heterogeneous. Abdominal vasculature: The abdominal aorta is normal in course and caliber noting advanced atherosclerotic calcification. Bowel: There is moderate colonic diverticulosis without CT evidence of acute diverticulitis. Fecal retention is seen throughout the colon. No bowel obstruction is identified. The appendix is not visualized. Peritoneum: There is no intraperitoneal free air or abdominal ascites. There is a fat-containing umbilical hernia. Lymphadenopathy: None. Pelvic viscera: The bladder is mildly distended but otherwise normal in appearance. The uterus is surgically absent. No adnexal lesion is seen. Skeletal structures: The skeletal structures are osteopenic. No lytic or blastic lesions are seen. IMPRESSION: 1. There is no evidence of pulmonary embolus in the main, lobar, or segmental pulmonary arteries. 2. Emphysema. 3. There is no airspace consolidation or pleural effusion. 4. Diffuse peribronchial thickening suggests bronchitis/reactive airway disease. Clinical correlation will be required. 5. Foci of parenchymal scarring are seen throughout the left kidney, there is mild urothelial thickening and enhancement in the left renal pelvis, and there is slightly heterogeneous enhancement left kidney. Correlate clinically and with urinalysis for evidence of left-sided pyelonephritis. 6. There is mild left-sided hydronephrosis. The left ureter is normal in caliber with no obstructing lesion identified. 7. Colonic diverticulosis without CT evidence of acute diverticulitis. 8. Advanced coronary artery calcification. 9. Additional findings as above. ACT 112: Negative or not required by law. Electronically signed by: Suman Gutierrez M.D. 11/13/2021 2:54 PM Abdomen/Pelvis CT 11/13/21 11:57 CT ANGIOGRAM OF THE CHEST; CT SCAN OF THE ABDOMEN AND PELVIS WITH IV CONTRAST CLINICAL HISTORY: Dyspnea. Tachycardia. Generalized weakness. Left flank pain. COMPARISON STUDY: Chest x-ray dated 11/13/2021. Abdominal CT dated 11/05/2021. TECHNIQUE: Following the IV administration of 120 of Optiray 320, CT angiogram of the chest is performed from the upper abdomen to the thoracic inlet utilizing the pulmonary embolus protocol. Images are reviewed in the axial, sagittal, coronal planes. 3-D MIPS images are created and assessed. Subsequently, CT scan of the abdomen and pelvis was performed from the lung bases to the proximal femora. Images are reviewed in the axial, sagittal, and coronal planes. IV contrast was administered without complication. A dose lowering technique was utilized adhering to the principles of ALARA. CT DOSE: 705.72 mGycm FINDINGS: CHEST: Thyroid: Normal in size and heterogeneous in attenuation. A coarse calcification is seen in the right lobe. Thoracic aorta: There is mild atherosclerotic calcification of the thoracic aorta. There is mild ectasia of the ascending thoracic aorta which measures up to 3.7 cm in diameter. The remainder of the thoracic aorta is normal in caliber and the arch demonstrates bovine variant anatomy. No dissection is seen. Pulmonary vasculature: The pulmonary trunk is normal in caliber. There are no filling defects identified in the main, lobar, or segmental pulmonary arteries to indicate pulmonary embolus. Heart: The heart is normal in size and without pericardial effusion. The coronary arteries are densely calcified. Lungs and pleural spaces: There is moderate emphysema. No airspace consolidation or pleural effusion is identified. The trachea and central airways are clear. Scarring/atelectasis is noted at the lung bases. Diffuse peribronchial thickening is noted. Mediastinum: There is no mediastinal lymphadenopathy. Mari: Clear. Axillae: There is no axillary lymphadenopathy. Bony thorax: The skeletal structures are osteopenic. There is thoracolumbar scoliosis. No lytic or blastic lesions are identified. ABDOMEN AND PELVIS: Liver: The contrast-enhanced liver is normal in size, contour, and attenuation. There is no intrahepatic or ductal dilatation. The hepatic veins and portal veins are patent. Gallbladder: Unremarkable. Spleen: Normal in size and attenuation. Pancreas: Unremarkable. Adrenal glands: Unremarkable. Kidneys: The contrast enhanced kidneys are normal in size. There is mild left- sided hydronephrosis and a large left external pelvis. Mild urothelial thickening and enhancement is suggested involving the left pelvis. Foci of parenchymal scarring are seen throughout the left kidney. Enhancement of the left kidney is slightly heterogeneous. Abdominal vasculature: The abdominal aorta is normal in course and caliber noting advanced atherosclerotic calcification. Bowel: There is moderate colonic diverticulosis without CT evidence of acute diverticulitis. Fecal retention is seen throughout the colon. No bowel obstruction is identified. The appendix is not visualized. Peritoneum: There is no intraperitoneal free air or abdominal ascites. There is a fat-containing umbilical hernia. Lymphadenopathy: None. Pelvic viscera: The bladder is mildly distended but otherwise normal in appearance. The uterus is surgically absent. No adnexal lesion is seen. Skeletal structures: The skeletal structures are osteopenic. No lytic or blastic lesions are seen. IMPRESSION: 1. There is no evidence of pulmonary embolus in the main, lobar, or segmental pulmonary arteries. 2. Emphysema. 3. There is no airspace consolidation or pleural effusion. 4. Diffuse peribronchial thickening suggests bronchitis/reactive airway disease. Clinical correlation will be required. 5. Foci of parenchymal scarring are seen throughout the left kidney, there is mild urothelial thickening and enhancement in the left renal pelvis, and there is slightly heterogeneous enhancement left kidney. Correlate clinically and with urinalysis for evidence of left-sided pyelonephritis. 6. There is mild left-sided hydronephrosis. The left ureter is normal in caliber with no obstructing lesion identified. 7. Colonic diverticulosis without CT evidence of acute diverticulitis. 8. Advanced coronary artery calcification. 9. Additional findings as above. ACT 112: Negative or not required by law. Electronically signed by: Suman Gutierrez M.D. 11/13/2021 2:54 PM Supervising Physician Co-Signing Physician Notes Date of Service: November 13, 2021 History and physical exam performed by me. History notable for 61-year-old woman with hypothyroidism, smoker, insomnia, recent hospitalization from 11/01/2021 to 11/06/2021 for sepsis and urinary tract infection who presents with worsening weakness, left flank pain and diarrhea. Patient reports that she never really felt better even on discharge and symptoms worsen 2 days ago with left flank pain is constant achy usually worse with urination and radiates to the groin. Worsening generalized weakness and worsening diarrhea over the past 2 days. Reports T-max at home was 99. On Exam, General: Ill looking, no acute distress Eyes: PERRL, conjunctivae normal, not pale, anicteric sclerae, EOM intact bilaterally ENMT: External ear and nose normal, oropharynx normal Neck: Normal visual inspection, no tracheal deviation, no swelling noted Respiratory: Normal respiratory effort, no respiratory distress, lungs clear to auscultation, no crackles and no wheezes Cardiovascular: RRR S1 S2 Gastrointestinal (Abdomen): Abdomen is not distended, soft, non-tender to palpation, no guarding, no palpable hepatosplenomegaly, normal bowel sounds Musculoskeletal: No pedal edema Genitourinary: +Left CVA tenderness Neurologic: Alert and oriented x 3, No focal weakness, sensation grossly intact Psychiatric: Alert and oriented x 3, euthymic affect Labs notable for WBC of 11.47, platelet of 802 thousand, calcium of 10.8. Abdominal CT noted foci of parenchymal scarring throughout left kidney, mild urothelial thickening and enhancement in the left renal pelvis and there is slightly heterogeneous enhancement of the left kidney, mild left sided hydro nephrosis. Generalized weakness Diarrhea Left flank pain Left flank pain and CT findings suggestive of left pyelonephritis History and CT findings also fevers possible kidney/ureteric stone as patient reports history of stones in the past, left flank pain that radiates to the groin especially with urination, mild left hydronephrosis. However, no obstructing lesions seen. Considering patient's recent hospitalization and management for sepsis from UTI with E. coli bacteremia, will give cefepime for now. UA done today does not suggest UTI. However, will send for urine culture Follow-up blood cultures Monitor electrolytes and replete as needed Check C. difficile PT/OT evaluation Agree with plans as detailed by Denisha Lockhart PA-C
--- NOTE | 2021-11-13 16:36 | Communication Note ---
Date of Service: November 13, 2021 History and physical exam performed by me. History notable for 61-year-old woman with hypothyroidism, smoker, insomnia, recent hospitalization from 11/01/2021 to 11/06/2021 for sepsis and urinary tract infection who presents with worsening weakness, left flank pain and diarrhea. Patient reports that she never really felt better even on discharge and symptoms worsen 2 days ago with left flank pain is constant achy usually worse with urination and radiates to the groin. Worsening generalized weakness and worsening diarrhea over the past 2 days. Reports T-max at home was 99. On Exam, General: Ill looking, no acute distress Eyes: PERRL, conjunctivae normal, not pale, anicteric sclerae, EOM intact bilaterally ENMT: External ear and nose normal, oropharynx normal Neck: Normal visual inspection, no tracheal deviation, no swelling noted Respiratory: Normal respiratory effort, no respiratory distress, lungs clear to auscultation, no crackles and no wheezes Cardiovascular: RRR S1 S2 Gastrointestinal (Abdomen): Abdomen is not distended, soft, non-tender to palpation, no guarding, no palpable hepatosplenomegaly, normal bowel sounds Musculoskeletal: No pedal edema Genitourinary: +Left CVA tenderness Neurologic: Alert and oriented x 3, No focal weakness, sensation grossly intact Psychiatric: Alert and oriented x 3, euthymic affect Labs notable for WBC of 11.47, platelet of 802 thousand, calcium of 10.8. Abdominal CT noted foci of parenchymal scarring throughout left kidney, mild urothelial thickening and enhancement in the left renal pelvis and there is slightly heterogeneous enhancement of the left kidney, mild left sided hydronephrosis. Generalized weakness Diarrhea Left flank pain Left flank pain and CT findings suggestive of left pyelonephritis History and CT findings also fevers possible kidney/ureteric stone as patient reports history of stones in the past, left flank pain that radiates to the nallely in especially with urination, mild left hydronephrosis. However, no obstructing lesions seen. Considering patient's recent hospitalization and management for sepsis from UTI with E. coli bacteremia, will give cefepime for now. UA done today does not suggest UTI. However, will send for urine culture Follow-up blood cultures Monitor electrolytes and replete as needed Check C. difficile PT/OT evaluation Agree with plans as detailed by Denisha Lockhart PA-C
[2021-11-13] MEDS ORDERED: CARISOPRODOL 350 MG TABLET PO PRN (17:51)
[2021-11-13] MEDS ORDERED: HYDROCODONE/ACETAMOPHEN 5/325MG TAB PO ONE (17:51)
[2021-11-13] MEDS ORDERED: SUMAtriptan succinate 100 MG TAB PO PRN (17:51)
[2021-11-13] MEDS ORDERED: HYDROcodone/ACETAMINOPHEN 10/325 TAB PO PRN (17:51)
[2021-11-13] MEDS ORDERED: POLYETHYLENE (MIRALAX) 17 GM PACK PO PRN (17:51)
[2021-11-13] MEDS ORDERED: ONDANSETRON INJ 2 MG/ML 2 ML VIAL IV PRN (17:51)
[2021-11-13 17:57] LABS: Magnesium 1.7 mg/dl (1.7-2.4); Phosphorus 3.8 mg/dl (2.5-4.9)
[2021-11-13] MEDS: ENOXAPARIN INJ 40 MG/0.4 ML SYR SQ SCH (21:35)
[2021-11-13] MEDS: CEFEPIME 2,000 MG in SYRINGE 0 ML IV SCH (21:35)
[2021-11-14] MEDS: ACETAMINOPHEN 325 MG TAB PO PRN ×3 (03:24→17:41)
[2021-11-14] MEDS: LEVOTHYROXINE SODIUM 150 MCG TABLET PO SCH (05:51)
[2021-11-14] MEDS: CEFEPIME 2,000 MG in SYRINGE 0 ML IV SCH ×3 (05:51→21:20)
[2021-11-14 07:33] LABS: Hematocrit (blood only) 38.8 % (37-47); Hemoglobin 12.2 g/dL (12.0-16.0); Mean Corpuscular Hemoglobin 30.7 pg (25-34); Mean Corpuscular Hgb Conc 31.4 g/dL (32-36); Mean Corpuscular Volume 97.7 fL (80-100); Mean Platelet Volume 8.8 fL (7.4-10.4); Platelet Count 669 K/uL (130-400); RDW Coefficient of Variation 15.4 % (11.5-14.5); RDW Standard Deviation 55.5 fL (36.4-46.3); Red Blood Count 3.97 M/uL (4.2-5.4); White Blood Count 8.05 K/uL (4.8-10.8)
[2021-11-14 07:49] LABS: BUN Creatinine Ratio 20.7 (10-20); Creatinine Clr Calc Pharmacy 64.8 ml/min; Est GFR (African American) 89.5 ml/min; Est GFR (Non-African American) 77.2 ml/min; Potassium 4.1 mmol/L (3.5-5.1)
[2021-11-14] MEDS: amLODIPine BESYLATE 5 MG TAB PO SCH (09:34)
--- NOTE | 2021-11-14 13:03 | Hospitalist Progress Note ---
Date of Service November 14, 2021 Assessment & Plan (1) Left flank pain: Plan: This is a 61yo F with a PMH of hypothyroidism, insomnia, tobacco use disorder who presents from PCP's office with left flank pain, generalized weakness and tachycardia. Recently admitted to our service from 11/01-11/06 for E coli bacteremia 2/2 UTI. Blood culture from 11/01 growing e coli sensitive to cipro, which she was discharged home on. Blood cx 11/[address] abd/pelvis with mild urothelial thickening and enhancement in the left renal pelvis, and there is slightly heterogeneous enhancement left kidney. Correlate clinically and with urinalysis for evidence of left-sided pyelonephritis WBC 11.4k, lactate and procal WNL. UA unremarkable (she just completed Cipro on ) Given recent bacteremia 2/2 UTI, will continue abx coverage with Cefepime. Follow blood cultures Strain urine for stone Analgesics PRN, IV fluids, PT/OT evaluation She is not appearing infected but is clearly not feeling better. She still has left flank pain that is radiating into her left groin with urination, palpation of the suprapubic region causes left flank pain and she still has CVA tenderness on the left. With the CT findings above and ongoing symptoms f pyelonephritis, will ask Urology to see her. No fever, chills. Pyridium added for comfort. (2) Generalized weakness: Plan: Secondary to unclear process above. Encouraged to ambulate as tolerated. (3) Diarrhea: Plan: Developed watery diarrhea in past few days, in setting of abx use per initial report She isn't reporting this as an issue today C diff pending but hasn't been a sample to give yet. (4) Hypothyroidism: Plan: Continue levothyroxine (5) Tobacco use: Plan: Cessation recommended. Not interested in nicotine patch DVT Ppx: SQ lovenox Code status: FULL PCP: Angélica Dispo: Admitted to med/surg DO Espino[facility] Hospitalist Admission and Anticipated Discharge Date Admission Date: November 13, 2021 Results & Data Results & Data ([facility]) Vital Signs (Past 12 Hours) Vital Signs Temp Pulse Resp BP Pulse Ox 11/14/21 08:00 36.9 C 76 18 116/73 95 Laboratory Results Short CBC 11/14/21 Range/Units 06:44 WBC 8.05 (4.8-10.8) K/uL Hgb 12.2 (12.0-16.0) g/dL Hct 38.8 (37-47) % Plt Count 669 H (130-400) K/uL BMP 11/14/21 06:44 Sodium 137 Potassium 4.1 Chloride 103 Carbon Dioxide 29 BUN 17 Creatinine 0.82 Glucose 119 H Calcium 10.0 Urine 11/13/21 Range/Units 13:57 Urine Color Yellow Urine Appearance Clear (Clear) Urine pH 6.5 (4.5-7.5) Ur Specific [place] 1.007 (1.000-1.030) Urine Protein Negative (Negative) Urine Glucose (UA) Negative (Negative) Medications Administered Current Inpatient Medications Acetaminophen (Acetaminophen 325 Mg Tab) 650 mg PO Q4H PRN PRN Reason: pain/fever Stop: 12/13/21 17:50 Last Admin: 11/14/21 03:24 Dose: 650 mg Documented by: Hydrocodone Bitart/Acetaminophen (Hydrocodone/Acetaminophen 10/325 Tab) 1 tab PO Q6 PRN PRN Reason: Severe Pain (Scale Score 7-10) Stop: 11/27/21 17:50 Amlodipine Besylate (Amlodipine Besylate 5 Mg Tab) 5 mg PO QAM [facility] Stop: 12/14/21 08:59 Last Admin: 11/14/21 09:34 Dose: 5 mg Documented by: Carisoprodol (Carisoprodol 350 Mg Tablet) 350 mg PO TID PRN PRN Reason: Muscle Spasm Stop: 12/13/21 17:50 Enoxaparin Sodium (Enoxaparin Inj 40 Mg/0.4 Ml Syr) 40 mg SQ Q24H [facility] Stop: 12/13/21 17:50 Last Admin: 11/13/21 21:35 Dose: 40 mg Documented by: Cefepime HCl 2,000 mg/ Syringe 20 mls @ 5 mls/min IV Q8H [facility]; Protocol Stop: 11/23/21 17:50 Last Admin: 11/14/21 05:51 Dose: 5 mls/min Documented by: Levothyroxine Sodium (Levothyroxine Sodium 150 Mcg Tablet) 150 mcg PO DAILYBB [facility] Stop: 12/14/21 06:29 Last Admin: 11/14/21 05:51 Dose: 150 mcg Documented by: Ondansetron HCl (Ondansetron Inj 2 Mg/Ml 2 Ml Vial) 4 mg IV Q6H PRN PRN Reason: Nausea Stop: 12/13/21 17:50 Phenazopyridine HCl (Phenazopyridine Hcl 100 Mg Tab) 100 mg PO TID REGLA Stop: 12/14/21 13:59 Sumatriptan Succinate (Sumatriptan Succinate 100 Mg Tab) 100 mg PO DAILY PRN PRN Reason: Migraine Headache Stop: 12/13/21 17:50
[2021-11-14] MEDS: PHENAZOPYRIDINE HCL 100 MG TAB PO SCH ×2 (13:55→21:20)
[2021-11-14] MEDS ORDERED: ZOLPIDEM TARTRATE 5 MG TAB PO PRN (20:25)
[2021-11-14] MEDS: ENOXAPARIN INJ 40 MG/0.4 ML SYR SQ SCH (21:18)
[2021-11-15] MEDS: LEVOTHYROXINE SODIUM 150 MCG TABLET PO SCH (05:55)
[2021-11-15] MEDS: CEFEPIME 2,000 MG in SYRINGE 0 ML IV SCH (05:56)
[2021-11-15 08:01] LABS: Hemoglobin 12.3 g/dL (12.0-16.0); Mean Corpuscular Hemoglobin 31.6 pg (25-34); Mean Corpuscular Hgb Conc 32.4 g/dL (32-36); Mean Corpuscular Volume 97.7 fL (80-100); Mean Platelet Volume 8.7 fL (7.4-10.4); Platelet Count 614 K/uL (130-400); RDW Coefficient of Variation 15.3 % (11.5-14.5); RDW Standard Deviation 54.9 fL (36.4-46.3); Red Blood Count 3.89 M/uL (4.2-5.4)
[2021-11-15 08:17] LABS: BUN Creatinine Ratio 26.9 (10-20); Calcium 9.8 mg/dl (8.5-10.1); Creatinine Clr Calc Pharmacy 68.2 ml/min; Est GFR (African American) 95.1 ml/min; Est GFR (Non-African American) 82.1 ml/min; Potassium 4.1 mmol/L (3.5-5.1)
[2021-11-15] MEDS: amLODIPine BESYLATE 5 MG TAB PO SCH (08:46)
[2021-11-15] MEDS: PHENAZOPYRIDINE HCL 100 MG TAB PO SCH (08:46)
--- NOTE | 2021-11-15 09:32 | Urology Consultation ---
Date of Consultation November 15, 2021 Assessment & Plan (1) Pyelonephritis: Gradually recovering from acute pyelonephritis with bacteremia/septicemia Although her cultures are currently negative I suspect there may still be some residual infection within the kidney itself I would extend her antibiotic course for an additional 14 days She has outpatient follow-up scheduled with [facility] urology for next week No acute interventions indicated I suspect her prior infections and scarring are somewhat contributing to her protracted recovery course although severe pyelonephritis often has a slow recovery History of Present Illness Attending Physician: Sandrine Solomon, DO History of Present Illness 61-year-old female recently treated for acute left pyelonephritis who returns now with persistent discomfort and general malaise Her cultures thus far have proven to show no growth Her CT is not drastically changed from its appearance prior to her initial treatment for pyelonephritisstill a small amount of stranding and some heterogeneity within the kidneythese images were reviewed personally and discussed with her She does have scarring of the kidney consistent with past pyelonephritis On questioning she reports has had kidney infections in the past but never quite as severe as her most recent episode She denies severe flank pain todayreports that substantially improved, however she still feels extremely weak No current dysuria or hematuria Hemodynamically stable and afebrile No leukocytosis Creatinine 0.8 Allergies Allergy/AdvReac Type Severity Reaction Status Date / Time penicillin G Allergy Unknown HIVES/ Unverified 11/13/21 15:47 SWELLING Home Medications Medication Instructions Recorded Confirmed Type carisoprodol 350 mg tablet 350 mg PO TID PRN 11/01/21 11/13/21 History hydrocodone 10 mg-acetaminophen 1 tab PO Q6 PRN 11/01/21 11/13/21 History 325 mg tablet ibuprofen 200 mg tablet (Advil) 400 mg PO Q6H PRN 11/01/21 11/13/21 History ondansetron HCl 8 mg tablet 8 mg PO Q8 PRN 11/01/21 11/13/21 History sumatriptan succinate 100 mg tablet 100 mg PO DIRECTED 11/01/21 11/13/21 History zolmitriptan 5 mg tablet 5 mg PO DIRECTED 11/01/21 11/13/21 History amlodipine 5 mg tablet (Norvasc) 5 mg PO QAM 30 Days #30 tab 11/06/21 11/13/21 Rx levothyroxine 150 mcg tablet 150 mcg PO DAILY 11/13/21 11/13/21 History Patient History Medical History Benign tumor of abdominal wall Hypothyroidism Insomnia Migraine Mood disorder Osteoporosis Tobacco use Surgical History History of partial hysterectomy Hx of appendectomy Hx of tonsillectomy Previous section Family History Father Cancer Heart disease Mother Uterine cancer Aunt Breast cancer Social History Smoking Status: Current every day smoker Cigarettes Per Day: 1/2 PPD; Second Hand Exposure: No; Do You Dip or Chew Tobacco: No; Tobacco Cessation Education Requested by Patient: No Hx Alcohol Use: Yes Alcohol type: wine Hx Substance Use: No Preferred Language: Azeri Communication Ability: Effective Drupal Php Developer Required: No Beliefs That Will Affect Care: None Current Living Situation: Spouse Other Information That Helps Us Care for You: No Feels Safe at Home: Yes Safety Concerns: Feels Safe At This Time Assistive Devices: Denture - Upper Physical Exam Constitutional: well developed and well nourished Respiratory: no respiratory distress Cardiovascular: Extremities: no pedal edema Gastrointestinal (Abdomen): Inspection/Auscultation: abdomen normal to inspection Results & Data ([facility]) Vital Signs (Past 12 Hours) Vital Signs Temp Pulse Resp BP Pulse Ox 11/15/21 07:18 37.2 C 87 18 110/71 95 11/14/21 22:01 36.8 C 84 18 104/71 94 PG Care Time/CCT Total # of Minutes Spent Total Time Spent with Patient: Total time spent is greater than 50% in coordination of care (as documented) at patient's floor/unit and/or counseling patient: Coding Level of Care Code 91000 Inpt Consult Level 4 Diagnoses Pyelonephritis N12
--- NOTE | 2021-11-15 12:15 | Discharge Summary ---
Date of Service November 15, 2021 Admission HPI Per Admitting Provider This is a 61yo F with a PMH of hypothyroidism, insomnia, tobacco use disorder who presents from PCP's office with left flank pain, generalized weakness and tachycardia. Was recently admitted to our service from 11/01-11/06 for E coli bacteremia 2/2 UTI. Blood culture from 11/01 growing e coli sensitive to cipro, which she was discharged home on. Over the past week, patient endorses L flank and lower pain described as constant, deep pain that radiates down groin when she urinates. Pain became worse 2 days ago with associated weakness and feeling of heart racing. No alleviating factors. Diarrhea started yesterday and is watery, no blood visualized. No fever, chills, headache, chest pain, SOB, nausea, vomiting or constipation. Continues to feel exhausted. Dysuria has resolved since prior admission. Principal Diagnosis acute pyelonephritis Discharge Exam CONSTITUTIONAL: WNWD, vitals as above, generally well-appearing, NAD EYES: normal conjunctivae, no scleral icterus ENT: external ear and nose normal, MMM NECK: trachea midline RESPIRATORY: clear to auscultation bilaterally, no crackles, rales or wheezes, normal respiratory effort CARDIOVASCULAR: regular rate and rhythm, S1 and 2 heard without murmurs, gallops or rubs, no JVD, no peripheral edema CHEST: inspection of chest was normal GASTROINTESTINAL: soft, mild to no TTP in suprapubic region, improved CVA tenderness to palpation on the left compared to yesterday (should have been documented as left side) no guarding MUSCULOSKELETAL: strength 5/5 throughout, head is normocephalic and atraumatic, neck supple, normal palpation of chest wall without tenderness SKIN: warm and dry NEUROLOGIC: CN 2-12 grossly intact, no sensory deficit, normal cognition, normal speech, no tremor PSYCHIATRIC: alert cooperative and oriented to person, place and time. Euthymic mood, makes good eye contact, language grossly intact, recent and remote memory grossly intact. Discharge Data Allergies Allergy/AdvReac Type Severity Reaction Status Date / Time penicillin G Allergy Unknown HIVES/ Unverified 11/13/21 15:47 SWELLING Consultations 11/13/21 15:37 ED Decision to Admit Stat 11/14/21 12:44 Consult Urology Routine Ordered Studies 11/13/21 11:56 CT angio chest PE protocol Stat 11/13/21 11:57 CT abd pelvis IV con only Stat Hospital Course (1) Left flank pain: (2) Generalized weakness: (3) Tobacco use: 61-year-old female recently admitted from 11/01-11/06 for E. coli bacteremia secondary to acute pyelonephritis. Patient reports a history of frequent bladder/kidney infections in the past. Blood culture from 11/01 grew E. coli sensitive to ciprofloxacin. She was discharged home on ciprofloxacin and after couple days developed diarrhea. The diarrhea stopped when she arrived back at the hospital for reports of ongoing weakness and persistent left flank pain with associated bladder pain and dysuria. A CT abdomen pelvis with revealed mild urothelial thickening and enhancement in the left renal pelvis with a slight heterogeneous enhancement of the left kidney. White blood cell count was 11.4K with normal lactate and procalcitonin levels. Her urinalysis and urine cultures were unremarkable as she had just completed antibiotics. She remained afebrile. She was started on cefepime empirically and repeat blood cultures were negative. She improved on this therapy and urology was consulted. Per urology recommendations although her cultures are currently negative there may be some residual infection within the kidney itself. There is some evidence of scar tissue in the kidney consistent with past episodes of pyelonephritis. An extension of her antibiotic course for an additional 14 days was recommended. She was switched from cefepime to cefdinir to avoid further issues with diarrhea as outpatient and will be continued on this for an additional 14 days close primary care follow-up was recommended. Notably on her CBC she had an elevated platelet count likely reactive in the setting of persistent infection. Repeat CBC is recommended. At time of discharge she was mentating and ambulating at baseline and tolerating p.o. Her initial left flank pain was much improved and pretty was also added for comfort. She was discharged in stable condition with close primary care follow-up recommended. Smoking cessation was strongly recommended. Total Time Total Time Spent Total Time Spent (In Minutes): 60 Discharge Plan Discharge Items Patient Disposition: Home - Self-Care Reason For Visit: WEAKNESS, L FLANK PAIN Discharge Diagnosis: acute pyelonephritis Condition on Discharge: Good Activity: Resume your previous activity Non-emergency contact: Primary Care Provider Call non-emergency contact if: you have any medication questions, your symptoms worsen, your pain is not controlled, your pain is worsening, your pain is unusual for you, your pain is concerning for you and you have a fever Follow-up/Referrals: Segundo Lindsay MD [Primary Care Provider] - Diet: Regular Addtl Attending Provider Instructions: Please take all medications as instructed on discharge list below. You are being given another two week course of antibiotics as an extension of the treatment you initially received. Please ensure close follow-up with your primary care physician in 7-10 days to ensure you are improving. Repeat bloodwork is recommended on followup for monitoring. It is strongly recommended that you quit smoking as this is terrible for your health. You may call 7-385-RLUUThe Receivables ExchangeNOW for help with resources. [facility] ([facility]) also offers a smoking cessation class if you prefer to quit with a group. Nicotine supplementation is provided with many of these resources. Please discuss options for quitting with your primary care physician. If interested in the course at [facility] please contact Yvette Goodwin at [email or web address]. It was a pleasure taking care of you! Please call if you have any questions or problems. You can reach a [facility] hospitalist on duty at [facility] 24 hours a day by calling [phone]. Take care of yourself. Sandrine Solomon, DO [facility] Pending Studies at Discharge: Yes Studies:: initial blood cultures are negative but were not finalized prior to discharge. Stand-Alone Forms: [facility], Smoking Cessation Medications and DC Order Prescriptions: New phenazopyridine [Pyridium] 100 mg Tablet 100 mg PO TID PRN (Reason: bladder spasms/pain) Qty: 30 RF: 0 cefdinir 300 mg capsule 300 mg PO BID Qty: 28 RF: 0 Continued levothyroxine 150 mcg Tablet 150 mcg PO DAILY RF: 0 carisoprodol 350 mg tablet 350 mg PO TID PRN (Reason: Muscle Spasm) RF: 0 sumatriptan succinate 100 mg tablet 100 mg PO DIRECTED RF: 0 ondansetron HCl 8 mg tablet 8 mg PO Q8 PRN (Reason: Nausea) RF: 0 hydrocodone-acetaminophen 10-325 mg tablet 1 tab PO Q6 PRN (Reason: Severe Pain (Scale Score 7-10)) RF: 0 zolmitriptan 5 mg tablet 5 mg PO DIRECTED RF: 0 ibuprofen [Advil] 200 mg Tablet 400 mg PO Q6H PRN (Reason: Pain) RF: 0 amlodipine [Norvasc] 5 mg Tablet 5 mg PO QAM 30 Days Qty: 30 RF: 0 Discharge Orders: Discharge Order (Routine); Ordered 11/15/21 Ordered By: Sandrine Solomon Admission Data Admit Date/Time: 11/13/21 16:38 Attending Provider: Sandrine Solomon Admit Provider: Cheri Romero I. Primary Care Provider: Segundo Lindsay Other Providers: Cheri Romero I. ; Yohannes Bianchi
== END 2021-11-15 13:19 | disposition home or self-care (01) | DRG 690 ==
LOC: ED 11:37 → 3W 16:38 → SUATTDRO 16:38 → 3W 17:47